=== PATIENT | female | born 1980 | race Caucasian/White ===

== ENCOUNTER 2024-11-23 17:02 | Emergency (ER) | payer OTHER, SELFPAY ==
--- NOTE | 2024-11-23 17:05 | ED_ITS ---
HPI - URI/Sore Throat General Chief Complaint: Upper Respiratory Infection Stated Complaint: cough and headache Time Seen by Provider: 11/23/24 17:05 Source: patient Mode of arrival: ambulatory Limitations: no limitations History of Present Illness HPI Narrative: Patient is a 44-year-old female who presents with bilateral ear pain, left being worse than right, ear fullness and cough for the last several days. Has worsened since coming back from vacation. Patient has been taking daily allergy medicine and other [id number] medications. Denies any fever, chills, nausea, vomiting, diarrhea. Related Data Allergies Allergy/AdvReac Type Severity Reaction Status Date / Time Sulfa (Sulfonamide Allergy Mild Hives Verified 11/23/24 17:22 Antibiotics) Penicillins AdvReac Intermediate Nausea and Verified 11/23/24 17:22 Vomiting Review of Systems Review of Systems: All systems reviewed & are unremarkable except as noted in HPI and below Constitutional: Constitutional: Denies chills, Denies fatigue, Denies fever(s), Denies headache(s), Denies malaise and Denies weakness Eyes: Eyes: Denies blurry vision, Denies itchy eyes and Denies loss of vision ENT: Reports otalgia, Denies headache(s), Reports nasal congestion, Denies sinus pain and Denies sore throat Cardiovascular: Cardiovascular: Denies chest pain, Denies irregular heart rhythm and Denies dyspnea Respiratory: Respiratory: Reports cough and Denies dyspnea Gastrointestinal: Gastrointestinal: Denies abdominal pain, Denies diarrhea, Denies nausea and Denies vomiting Musculoskeletal: Musculoskeletal: Denies back pain, Denies myalgias and Denies arthralgias Integumentary/Breasts: Skin/Breast: Denies pruritus and Denies rash Neurologic: Denies headache(s), Denies loss of vision and Denies weakness Psychiatric: Psychiatric: Reports no additional psychiatric complaints Endocrine: Endocrine: Denies fatigue Allergic/Immunologic: Allergic/Immunologic: Denies itchy eyes PMFSH Comments At time of signature, agree with nursing past medical, surgical, social and family history. There is no relevant family history pertinent to the presenting complaint. Exam Const: General: cooperative, healthy appearing, comfortable, no acute distress and well nourished Nutritional Appearance: well nourished Orientation/consciousness: patient oriented x3 Limitations: no limitations HENMT: Head: normal to inspection, normocephalic and atraumatic Ears: hearing grossly normal bilaterally, external ears normal, EAC's normal, no periauricular adenopathy and TM abnormal bulging bilateral and erythematous bilateral Face/Nose/Sinus: Normal external nose present, Abnormal mucous membranes and turbinates present erythematous bilateral and diffuse, normal facial exam, sinuses nontender and face symmetric Face and sinus: normal facial exam, sinuses nontender and face symmetric Mouth: Yes Normal oral and palatal mucosa present, Yes lip normal, Yes tongue normal, Yes Normal salivary glands and ducts present, Yes oropharynx normal and Yes moist mucous membranes Teeth and gingiva: dentition normal Throat: posterior oropharynx normal, tonsils normal and uvula midline Eyes: General: appearance normal, both eyes and all related structures Alignment and Position: alignment normal and position normal Periorbital: periorbital findings normal Eyelids: eyelids normal Pupils: Equal, round and reactive pupils present Neck: Neck: normal visual inspection, full ROM, no lymphadenopathy and supple Chest: Chest palpation & inspection: normal inspection of the chest and normal palpation of entire chest wall Resp: Effort & Inspection: normal respiratory effort, able to speak in complete sentences and Actively coughing dry Auscultation: clear to auscultation bilaterally, no crackles, no rales, no rhonchi and no wheezes Cardio: Rate: regular rate Rhythm: regular rhythm Heart sounds: S1 normal heart sound present and S2 normal heart sound present GI: Inspection: normal to inspection Skin: General skin exam: normal color and no rashes or lesions noted Neuro: General: patient oriented x3 and moves all extremities Cranial nerves: Yes Equal, round and reactive pupils present Speech: normal speech Gait exam (Neuro): Normal gait present Extrem: General: normal to inspection, full ROM and no edema Psych: Appearance: grossly normal and well kempt Mental Status: mental status grossly normal Speech and movement: Normal speech and movement present Affect: normal affect Attitude: cooperative Thought process: Normal thought process present Course Course Emergency Course: Discharge instructions reviewed with patient, as well as provided in writing per nursing staff. The instructions also include specific and strict return/GO TO THE ER as well as f/u information. All questions have been answered, and the patient deny any further questions with discharge and discharge plan. Portions of this record may have been created with voice recognition software Level of Care: Express Care Visit Vital Signs Vital signs: Reviewed [facility] - URI/Sore Throat MDM Narrative Medical decision making narrative: Pt well hydrated appearing, in no respiratory distress, hemodynamically stable. Recommend supportive care. The patient is stable at time of discharge the clinical impression was discussed and the patient was given the opportunity to ask questions, which were addressed as completely as possible given the information available at present. Anticipatory guidance and return to care precautions were discussed and the importance of primary care follow-up was stressed and encouraged. The patient voiced understanding of the plan, indications to return, and the need for follow-up. Exam findings show no acute concerns or changes Patient is appropriate for outpatient treatment and follow-up. Differential diagnosis considered: [place] virus, strep pharyngitis, allergic rhinitis, upper respiratory tract infection, sinusitis, rhinosinusitis, nasopharyngitis. viral pharyngitis, otitis media, otitis externa, otitis effusion, foreign body, cerumen impaction, viral syndrome, and influenza.? Medical Records Attestation: I reviewed the patient's medical records. Discharge Plan Discharge Clinical Impression: Seasonal allergies Otitis media Qualifiers: Otitis media type: suppurative Chronicity: acute Laterality: bilateral Recurrence: non-recurrent Spontaneous tympanic membrane rupture: without spontaneous rupture Qualified Code(s): H66.003 - Acute suppurative otitis media without spontaneous rupture of ear drum, bilateral Cough Qualifiers: Cough type: acute Qualified Code(s): R05.1 - Acute cough Patient Disposition: Home Condition: Stable Instructions: Ear Infection (GEN), Acute Cough (ED) Additional Instructions: Take antibiotics as directed. Use Tessalon Perles as needed for cough Recommend antihistamine such as Benadryl at night time and Zyrtec or Madeleine during the day until symptoms improve Flonase nasal spray, 1 spray in each nostril once daily until symptoms improve Also, recommend symptomatic treatment includes: rest, fluids, and increase humidity of the air at home. Recommend Acetaminophen as directed on the bottle to reduce fever, pain Please schedule a follow-up visit with your personal physician for further evaluation and treatment within 3-5days. If your symptoms persist, change or worsen significantly before you can contact your personal physician then please, without delay, go to the emergency department for further evaluation. Your blood pressure was elevated above 120/80 today at Urgent Care. This puts you above the threshold for follow up visit with a primary care provider. High blood pressure does not usually cause any symptoms, however it may lead to kidney failure, stroke, heart disease just to name a few if untreated . Many people are anxious when seeing a provider or nurse. As a result, you are not diagnosed with hypertension at this time unless your blood pressure is persistently high at two office visits at least one week apart. Some things that can help lower blood pressure are lifestyle modifications, such as light exercise, decreased salt in diet, and weight loss. It is important to follow up with a PCP about this within 1 week. Patient Language: Persian Prescriptions: New amoxicillin 875 mg tablet 875 mg PO Q12H 7 Days Qty: 14 0RF benzonatate 100 mg capsule 100 mg PO BID PRN (Reason: cough) Qty: 14 0RF Follow-up/Referrals: Caroline,TERELL Zarco [Primary Care Provider] - 3 Days Time of Disposition: 17:25
--- OUTSIDE RECORDS SUMMARY | 2024-11-23 17:10 | XMS_ITS | Encounter Summary ---
Author Organization [facility] Healthcare Address [address] [place] [id number] Care Team Providers Care Forming Machine Tender Name Role Phone Altagracia Velazquez Primary Care Provider [phone] Kevin Pascual MD Unavailable [phone] Encounter Details Date Type Department Care Team (Late st Contact Info) Description 05/08/2023 Documentation [facility] OP Physical Therapy [address] [place] [id number] Windy Rhodes, PT Social History Tobacco Use Types Packs/Day Years Used Date Smoking Tobacco: Never Smokeless Tobacco: Never Alcohol Use Standard Drinks/Week Comments Never 0 (1 standard drink = 0.6 oz pur e alcohol) AUDIT-C Answer Date Recorded Q1: How often do you have a drink containing alcohol? Never 10/09/2022 Q2: How many drinks containi ng alcohol do you have on a typical day when you are drinking? Patient does not drink Q3: How often do you have si x or more drinks on one occasion? Never 10/09/2022 PHQ-2 Answer Date Recorded PHQ-2 Total Score (If total score is 3 or more points, staff should administer the PHQ-9) 0 10/09/2022 Comments No Sex and Gender Information Value Date Recorded Sex Assigned at Not on file Legal Sex Female 10:01 AM CDT Gender Identity Female 06/23/2024 7:00 AM [employer] Sexual Orientation Not on file documented as of this encounter Plan of Treatment Not on file documented as of this encounter Visit Diagnoses Not on filedocumented in this encounter Care Teams Forming Machine Tender Relationship Specialty Start Date End Date Altagracia Velazquez PA [address] [place] [address] PCP - General Family Medicine 01/20/19 Kevin Pascual MD [address] [place] [address] Consulting Physician Family Medicine 01/20/19 documented as of this encounter
--- OUTSIDE RECORDS SUMMARY | 2024-11-23 17:10 | XMS_ITS ---
Author Organization [facility] [place] ([address]) Address [address] [place] [address] Care Team Providers Care Manager Business Management Name Role Phone Altagracia Velazquez Primary Care Provider UnavailLizeth Brown Unavailable [phone] Jayshree Agustin Unavailable Unavailable Vineet Canseco Unavailable [phone] REASON FOR VISIT Hives follow-up, started Xolair in 04/2022. No interval hives. Taking Zyrtec daily, no longer takingPepcid or Singulair. No issues with last Xolair dose., Chronic upper airway symptoms concerning foruncontrolled atopic disease, with prior testing in childhood. No prior immunotherapy, has noticed increased symptoms lately. Testing blunted last week., Seasonal cough and wheezing requiring KENDRA -finding albuterol causing tachycardia and shakiness. Switched to Levalbuterol with benefit., Chronic rash on hands, worse in winter, marked by small bumps, recently worse on one of her fingers, better with Vanicream., Recently received TDAP with urticaria the next day, first hive outbreak in months. Medications Medication SIG (Take, Route, Frequency, Duration) Notes Start Date End Date Status LEVALBUTEROL TARTRATE HFA 45 mcg/inh 2 puff(s) inhaled every 4 hours Active FLUTICASONE NASAL 50 mcg/inh 1 spray(s) in each nostril twice a day; Duration: 30 days Active AZELASTINE NASAL 137 mcg/inh 2 spray(s) intranasally 2 times a day; Duration: 30 days Active PREDNISONE 20 mg 2 tab(s) orally once a day; Duration: 5 days Active XOLAIR 150 mg 150 mg subcutaneousl y every 4 weeks; Duration: 30 days Activ e VANICREAM CLEANSING BAR - 1 juan applied topically 4 times a day Active CLOBETASOL (EQV-TEMOVATE E) 0.05% 1 juan applied topically 2 times a day; Duration: 7 day(s) Active CETIRIZINE 10 mg 1 tab(s) orally Qday ; Duration: 90 days Active PEPCID 40 mg 1 tab(s) orally once per day; Duration: 90 days Active MONTELUKAST 10 mg 1 tab(s) orally at n ight; Duration: 90 days Active EPIPEN 2-FRANCIS 0.3 mg as directed intramus cularly once; Duration: 30 days Active VANICREAM MOISTURIZING CREAM N/A as necessary Apply to external surfaces as often as needed to face, hands, feet or body For daily use by the entire family; Duration: 30 day(s) Active Social History Sex Assigned At : Social History Observation Description Sex Assigned At Female Encounters Encounter Location Date Provider Diagnosis [address] [address] 10/29/2024 Vineet Ajith Idiopathic urticar ia L50.1 ; Dermatographic urticaria L50.3 ; Localized swelling, mass and lump, head R22.0 ; Wheezing R06.2 ; Dyshidrosis [pompholyx] L30.1 ; Allergic rhinitis due to pollen J30.1 ; Other allergic rhinitis J30.89 ; Adverse effect of other vaccines and biological substances, initial encounter T50.Z95A and Elevated blood-pressure reading, without diagnosis of hypertension R03.0 Assessments Encounter Date Diagnosis (ICD Code) Assessment Notes Treatment Notes Treatment Clinical Notes Section Notes 10/29/2024 Idiopathic urticaria (ICD-10 - L50.1) Kathy has a history of chronic hives occurring in college. Started occurring daily in November 2021, > 6 weeks with episodes of swelling. She has continued doing very well on Xolair. No interval hives reported in the last several months. - Recommend continuing Xolair Q4 weeks given her response. Continue daily Zyrtec. No hives off meds this week. She is no longer taking Singulair or Pepcid without increased in pruritus or recurrence of hives. - Kathy presents today interested in titrating down XOLAIR as she has not had hives and has been on therapy for two years. Due to this, 150 mg of XOLAIR given today. 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 - Carrying AIE at all times 10/29/2024 Wheezing (ICD-10 - R06.2) Seasonal wheezing 2-3 x a year with historical PNA and bronchitis - Given history, spirometry was obtained in the past, which was normal. - Has KENDRA to have on hand, if she has use >2-3x a week recommend repeat spirometry and consider controller. - Continue to monitor for increased KENDRA use, no recent issues 10/29/2024 Dyshidrosis [pompholyx] (ICD-10 - L30.1) Her prior description of rash is c/w dyshidrotic eczema. Skin clear today on PE. - Discussed using unscented dye free products. Consider patch testing if symptoms return. - Continue Vanicream moisturizer and soap - Used clobetasol with topical emollient BID x 3-7 days with significant improvement 10/29/2024 Allergic rhinitis due to pollen (ICD-10 - J30.1) Skin testing unable to be performed. ImmunoCaps showed dust mite, grass, and tree allergy. - Continue medication regimen as above for better control of symptoms. - Recently returned for skin testing, however test was blunted, showed only phoma, goldenrod, and sari grass. - Recommend retesting once off Xolair in the next year 10/29/2024 Other allergic rhinitis (ICD-10 - J30.89) As above 10/29/2024 Adverse effect of other vaccines and biological substances, initial encounter (ICD-10 - T50.Z95A) Kathy reports that in October she received a TDAP booster. The next day she developed urticaria on her face and hairline. - Timeline described is not consistent with IgE-mediated hypersensitivity reaction to TDAP vaccine. Can consider a dose challenge if desired by Kathy in the future 10/29/2024 Elevated blood-pressure reading, without diagnosis of hypertension (ICD-10 - R03.0) BP elevated today without symptoms of urgency or emergency. Continue serial checks and follow-up with PCP 10/29/2024 Other Plan Of Treatment Medication Medication Name Sig Start Date Stop Date Notes LEVALBUTEROL TARTRATE HFA 45 mcg/inh 2 puff(s) inhaled every 4 hours FLUTICASONE NASAL 50 mcg/inh 1 spray(s) in each nostril twice a day; Duration: 30 days AZELASTINE NASAL 137 mcg/inh 2 spray(s) intranasally 2 times a day; Duration: 30 days PREDNISONE 20 mg 2 tab(s) orally once a day; Duration: 5 days XOLAIR 150 mg 150 mg subcutaneousl y every 4 weeks; Duration: 30 days VANICREAM CLEANSING BAR - 1 juan applied topically 4 times a day CLOBETASOL (EQV-TEMOVATE E) 0.05% 1 juan applied topically 2 times a day; Duration: 7 day(s) CETIRIZINE 10 mg 1 tab(s) orally Qday ; Duration: 90 days PEPCID 40 mg 1 tab(s) orally once per day; Duration: 90 days MONTELUKAST 10 mg 1 tab(s) orally at n ight; Duration: 90 days EPIPEN 2-FRANCIS 0.3 mg as directed intramus cularly once; Duration: 30 days VANICREAM MOISTURIZING CREAM N/A as necessary Apply to external surfaces as often as needed to face, hands, feet or body For daily use by the entire family; Duration: 30 day(s) Treatment Notes Assessment Notes Idiopathic urticaria Kathy has a history of chronic hives occurring in college. Started occurring daily in November 2021, > 6 weeks with episodes of swelling. She has continued doing very well on Xolair. No interval hives reported in the last several months. - Recommend continuing Xolair Q4 weeks given her response. Continue daily Zyrtec. No hives off meds this week. She is no longer taking Singulair or Pepcid without increased in pruritus or recurrence of hives. - Kathy presents today interested in titrating down XOLAIR as she has not had hives and has been on therapy for two years. Due to this, 150 mg of XOLAIR given today. - Return in 4 weeks for XOLAIR and further evaluation and management Dermatographic urticaria Pictures of hives show some linear welts c/w dermatographism - Doing well on XOLAIR Localized swelling, mass and lump, head Episodic swelling of eyelids and lips in the setting of hives - Continues doing well on XOLAIR. - Carrying AIE at all times Wheezing Seasonal wheezing 2-3 x a year with historical PNA and bronchitis - Given history, spirometry was obtained in the past, which was normal. - Has KENDRA to have on hand, if she has use >2-3x a week recommend repeat spirometry and consider controller. - Continue to monitor for increased KENDRA use, no recent issues Dyshidrosis [pompholyx] Her prior description of rash is c/w dyshidrotic eczema. Skin clear today on PE. - Discussed using unscented dye free products. Consider patch testing if symptoms return. - Continue Vanicream moisturizer and soap - Used clobetasol with topical emollient BID x 3-7 days with significant improvement Allergic rhinitis due to pollen Skin testing unable to be performed. ImmunoCaps showed dust mite, grass, and tree allergy. - Continue medication regimen as above for better control of symptoms. - Recently returned for skin testing, however test was blunted, showed only phoma, goldenrod, and sari grass. - Recommend retesting once off Xolair in the next year Other allergic rhinitis As above Adverse effect of other vacc paula and biological substances, initial encounter Kathy reports that in October she received a TDAP booster. The next day she developed urticaria on her face and hairline. - Timeline described is not consistent with IgE-mediated hypersensitivity reaction to TDAP vaccine. Can consider a dose challenge if desired by Kathy in the future Elevated blood-pressure read ing, without diagnosis of hypertension BP elevated today without symptoms of urgency or emergency. Continue serial checks and follow-up with PCP Next Appt Details Follow Up: 4 Weeks, Reason: XOLAIR Administration,Evaluation and Management Provider Name:Vineet Canseco , 12/03/2024 04:00:00 PM, [address] [place], [address], Progress Notes * Kami LEWISOB: 0 (44 yo F)Acc No.[id number]:10/29/2024 XOLAIR F/U Patient: Kathy LEVI Provider: Helio Canseco MD :1980 A ge:44 Y S ex:Female Date:10/29/2024 Address:[address] [place] [address], [facility] Pcp:Altagracia Velazquez Subjective: * Chief Complaints: * 1 . Hives follow-up, started Xolair in 04/2022. No interval hives. Taking Zyrtec daily, no longer taking Pepcid or Singulair. No issues with last Xolair dose.. 2. Chronic upper airway symptoms concerning for uncontrolled atopic disease, with prior testing in childhood. No prior immunotherapy, has noticed increased symptoms lately. Testing blunted last week.. 3. Seasonal cough and wheezing requiring KENDRA - finding albuterol causing tachycardia and shakiness. Switched to Levalbuterol with benefit.. 4. Chronic rash on hands, worse in winter, marked by small bumps, recently worse on one of her fingers, better with Vanicream.. 5. Recently received TDAP with urticaria the next day, first hive outbreak in months.. * HPI: * Introduction: HPI: Sue ibarramatt Lewis, a 44-year-old female with a history of migraines and hives returning today in consultation with SAFBJulián Kathy is alone today. She is here today to continue treatment with XOLAIR for chronic hives. She continues Xolair every 4 weeks, she first started XOLAIR April 2022. She is taking Zyrtec daily, no longer taking Pepcid or Singulair. She carries an AIE at all times. She is interested in reducing XOLAIR. S he has not had any interval hives or itching in the past few months. Has been able to reduce meds as above. She did receive a TDAP booster in October. The next day she had urticaria across her face and hairline. No other associated systemic symptoms. States this has been the only hives she has had in the last year. She reports that she had hives for years in college but never was evaluated. She would take Claritin or Zyrtec with benefit. Had allergy testing in childhood positive to several things but never offered immunotherapy. She recently presented for skin testing, however testing was blunted. As a family they moved to several cities, not having time to be seen an valve lapper again. Hives worsened in November 2021, was having hives almost daily. Then began experiencing facial swelling with hives. Feels that stress and pressure (bra line or underwear line) are triggers. She does use NSAIDs - Excedrin Migraine PRN - for migraines. Doesn't feel this worsens hives, opioids in the past have caused rash/hives. She is a lifetime non-smoker and does not drink alcohol as she gets flushing/hotness of cheeks. Sue guy also has a history of rash, occurring on hands, marked as small pruritic bumps. Now using Vanicream with benefit. 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 No other triggers. Does worsen in grain drier climates. Re: wheezing. 2-3 times a year reports self-perceived wheezing. Has been given albuterol in the past, with use 1-2 times per month. Years ago would have recurrent bronchitis and PNA. None in the past 8 years. Switched to Levalbuterol at a prior visit due to side effects.Interested in allergy testing but was unable to hold meds as hives and swelling of eyelids and lips occurred.Today, she reports no fevers, chills, night sweats or other constitutional symptoms. The patient is here for scheduled immunotherapy with XOLAIR. Please see the attached specialty form regarding the specifics of the administration of this medication. As per our protocol, they must undergo a screening health questionnaire (medication changes, reaction(s) to last immunotherapy dose(s), current health status, ACT (if appropriate), self-injectable epinephrine on patient(?) and peak flow (if appropriate)). Also, the patient must wait in our office under direct observation of physician and staff for 2 hours after the first 3 doses, then 30 minutes after receiving this medication thereafter. Furthermore, every patient must have an epinephrine pen (self-injectable) with them at all times given boxed warning of XOLAIR. * ROS: A LLERGY: Positive p er the HPI and history, otherwise unremarkable.?runny nose Y es. s cratchy throat Y es. i tchy eyes Y es. e ar fullness?Yes. s inus congestion Y es. S PECIAL SENSES: Positve for n one. c ataracts N o. g laucoma?No. l oss of hearing N o. i tching in ears Y es. r inging in ears N o.?loss of balance Y es. l oss of smell N o. d ry eyes N o. e xcessive tearing N o. i tching eyes Y es. l oss of taste N o. c onjunctivitis N o.?ear infections N o. C ONSTITUTIONAL: weight gain N o. l oss of appetite N o. f ever?No. w eakness N o. w eight loss N o. f atigue Y es. n ight sweats?No. P ositive for n one. E NT: cold N o. c ough N o. e pistaxis N o. h earing loss N o. c hange in voice N o. s ore throat Y es. r inging in ears?No. s inus pain Y es. P ositive p er the HPI and history, otherwise unremarkable. R ESPIRATORY: shortness of breath N o. c hest pain N o. c hest congestion N o. c ough N o. P ositive p er the HPI and history, otherwise unremakable. O PHTHALMOLOGY: diminished vision N o. e ye irritation N o. d rainage from eyes N o. b lurring of vision N o. s easonal eye sx Y es. P ositive for p er the HPI and history, otherwise unremarkable. i tching Y es. s ensitivity to light Y es. d ischarge N o. w atering N o. s welling of the eyelids?Yes. r edness N o. E NDOCRINOLOGY: fatigue N o. p olydipsia N o. p olyuria N o. w eight loss N o. s leep disturbance N o. c old intolerance N o. h eat intolerance N o. d iabetes N o. P ositive for n one. C ARDIOLOGY: chest pain N o. p alpitations N o. l eg edema?No. d izziness Y es. s hortness of breath Y es. P ositive for n one.? G ASTROENTEROLOGY: dysphagia N o. a bdominal pain N o. n ausea?No. v omiting N o. c onstipation N o. d iarrhea N o. b lood in stool?No. i ndigestion N o. h emorrhoids N o. P ositive for n one. ? U ROLOGY: difficulty urinating N o. b lood in urine N o. f requent urination N o. u rinary incontinence Y es. r ecurrent UTI N o. P ositive for n one. D ERMATOLOGY: lumps N o. d ry or sensitive skin N o. h katey (urticaria) Y es. a cne N o. s kin cancer N o. P ositive for p er the HPI and history, otherwise unremakable. N EUROLOGY: headache Y es. t ingling numbness N o. s eizures N o. i nsomnia N o. m michelle loss N o. d izziness Y es. g ait abnormality N o. P ositive for n one. H EMATOLOGY/LYMPH: Positive for n one. M USCULOSKELETAL: joint swelling N o. j oint pain Y es. l eg cramps N o. j oint stiffness Y es. s ciatica Y es. o steoporosis N o. f racture N o. c arpal tunnel N o. g out N o. P ositive for n one. ? P SYCHOLOGY: high stress level N o. d epression N o. s leep disturbances N o. s uicidal ideation N o. e ating disorder N o. m ental or physical abuse N o. a nxiety N o. P ositive for n one. F EMALE REPRODUCTIVE: heavy periods N o. h ot flashes N o. a bnormal vaginal discharge N o. s exually active Y es. i nfertility Y es. f requent yeat infections N o. p elvic pain N o. b reast pain N o. n ipple discharge No. A re you ? N o. A re you planning on a future pregancy? N o. ? A ll other review of systems per the HPI and history, otherwise unremarkable. * Medical History: Objective: * Vitals: Assessment: * Assessment: 1. I diopathic urticaria - L50.1 (Primary) 2 . D ermatographic urticaria - L50.3 3 . L ocalized swelling, mass and lump, head - R22.0 4 .?Wheezing - R06.2 5 . D yshidrosis [pompholyx] - L30.1 6 . Allergic rhinitis due to pollen - J30.1 7 . O ther allergic rhinitis - J30.89? 8. A dverse effect of other vaccines and biological substances, initial encounter - T50.Z95A 9 . E levated blood-pressure reading, without diagnosis of hypertension - R03.0 Plan: * Treatment: 2. 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 L ocalized swelling, mass and lump, head Continue EPIPEN 2-FRANCIS kit, 0.3 mg, as directed, intramuscularly, once, 30 days, 1, Refills 0. ? Notes: Episodic swelling of eyelids and lips in the setting of hives - Continues doing well on XOLAIR. - Carrying AIE at all times 4. W heezing Continue LEVALBUTEROL TARTRATE HFA aerosol, 45 mcg/inh, 2 puff(s), inhaled, every 4 hours. ? Notes: Seasonal wheezing 2-3 x a year with historical PNA and bronchitis - Given history, spirometry was obtained in the past, which was normal. - Has KENDRA to have on hand, if she has use >2-3x a week recommend repeat spirometry and consider controller. - Continue to monitor for increased KENDRA use, no recent issues 5. D yshidrosis [pompholyx] Continue VANICREAM MOISTURIZING CREAM Moisturizing Cream, N/A, as necessary, Apply to external surfaces as often as needed to face, hands, feet or body, For daily use by the entire family, 30 day(s), 1 lb. (453 g), Refills PRN; C ontinue VANICREAM CLEANSING BAR soap, -, 1 juan, applied topically, 4 times a day; C ontinue CLOBETASOL (EQV-TEMOVATE E) cream, 0.05%, 1 juan, applied topically, 2 times a day, 7 day(s), 30 g, Refills 0. Notes: Her prior description of rash is c/w dyshidrotic eczema. Skin clear today on PE. - Discussed using unscented dye free products. Consider patch testing if symptoms return. - Continue Vanicream moisturizer and soap - Used clobetasol with topical emollient BID x 3-7 days with significant improvement 6. A llergic rhinitis due to pollen Continue FLUTICASONE NASAL spray, 50 mcg/inh, 1 spray(s), in each nostril, twice a day, 30 days, 1, Refills 0; C ontinue AZELASTINE NASAL spray, 137 mcg/inh, 2 spray(s), intranasally, 2 times a day, 30 days, 1, Refills 1. Notes: Skin testing unable to be performed. ImmunoCaps showed dust mite, grass, and tree allergy. - Continue medication regimen as above for better control of symptoms. - Recently returned for skin testing, however test was blunted, showed only phoma, goldenrod, and sari grass. - Recommend retesting once off Xolair in the next year 7. O ther allergic rhinitis Notes: As above 8. A dverse effect of other vaccines and biological substances, initial encounter Notes: Kathy reports that in October she received a TDAP booster. The next day she developed urticaria on her face and hairline. - Timeline described is not consistent with IgE-mediated hypersensitivity reaction to TDAP vaccine. Can consider a dose challenge if desired by Kathy in the future 9. E levated blood-pressure reading, without diagnosis of hypertension Notes: BP elevated today without symptoms of urgency or emergency. Continue serial checks and follow-up with PCP * Preventive Medicine: Counseling: M edication instruction: W atch for side effects of prescribed medications, Nasal steroid/antihistamine instruction: avoid septum, Reviewed boxed warning on prescribed medication, Xolair: anaphylaxis, possible association with CV disease and malignancy.? E ducation: H KATEY EDUCATION:, Avoid opioid-containing analgesics, Avoid excessive alcohol use, Avoid NSAIDs (non-steroidal anti-inflammatories) - list provided. E ducation 2: A RC EDUCATION: Our staff discussed the appropriate allergen avoidance measures and medication utilization including upper airway hygiene with daily nasal washes given the patient's clinical status and diagnoses.. P atient education material sent to portal? Y es C are goal follow up plan BMI management provided Y es Above Normal BMI Follow-up W eight monitoring B P Management: LIFESTYLE RECOMMENDATION: H ypertension education REFERRAL TO ALTERNATIVE / PRIMARY CARE PROVIDER: Darline crockett to general practitioner * Follow Up: 4 Weeks (Reason: XOLAIR Administration,Evaluation and Management) * Billing Information: * Visit Code: 98379 Office Visit, Est Pt., Level 4. Modifiers: 25 * Procedure Codes: 21355 PT-FOCUSED HLTH RISK ASSMT. G8427 DOC [place] VERIFIED W/[place]. [address] CHEMO, ANTI-NEOPL, SQ/IM. J2357 NOC Xolair 150 mg PFS. Units: 30.00. Modifiers: JZ * Electronic signature of Lindsey Canseco MD, FAAAAI on 11/23/2024 at 05:10 PM CDT Sign off status: Pending * Provider: Helio Canseco MD Date: 10/29/2024 Generated for Printi ng/Faxing/eTransmitting on: 11/23/2024 05:10 PM CDT History and Physical Notes * HPI (History of Present Illness) Category Sub-Category Detail Notes Category Not es *Introduction HPI: Kathy Lewis, a 44-year-old female with a history of migraines and hives returning today in consultation with SAFB. Kathy is alone today. She is here today to continue treatment with XOLAIR for chronic hives. She continues Xolair every 4 weeks, she first started XOLAIR April 2022. She is taking Zyrtec daily, no longer taking Pepcid or Singulair. She carries an AIE at all times. She is interested in reducing XOLAIR. She has not had any interval hives or itching in the past few months. Has been able to reduce meds as above. She did receive a TDAP booster in October. The next day she had urticaria across her face and hairline. No other associated systemic symptoms. States this has been the only hives she has had in the last year. She reports that she had hives for years in college but never was evaluated. She would take Claritin or Zyrtec with benefit. Had allergy testing in childhood positive to several things but never offered immunotherapy. She recently presented for skin testing, however testing was blunted. As a family they moved to several cities, not having time to be seen an valve lapper again. Hives worsened in November 2021, was having hives almost daily. Then began experiencing facial swelling with hives. Feels that stress and pressure (bra line or underwear line) are triggers. She does use NSAIDs - Excedrin Migraine PRN - for migraines. Doesn't feel this worsens hives, opioids in the past have caused rash/hives. She is a lifetime non-smoker and does not drink alcohol as she gets flushing/hotness of cheeks. Kathy also has a history of rash, occurring on hands, marked as small pruritic bumps. Now using Vanicream with benefit. 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 No other triggers. Does worsen in grain drier climates. Re: wheezing. 2-3 times a year reports self-perceived wheezing. Has been given albuterol in the past, with use 1-2 times per month. Years ago would have recurrent bronchitis and PNA. None in the past 8 years. Switched to Levalbuterol at a prior visit due to side effects. Interested in allergy testing but was unable to hold meds as hives and swelling of eyelids and lips occurred. Today, she reports no fevers, chills, night sweats or other constitutional symptoms The patient is here for scheduled immunotherapy with XOLAIR. Please see the attached specialty form regarding the specifics of the administration of this medication. As per our protocol, they must undergo a screening health questionnaire (medication changes, reaction(s) to last immunotherapy dose(s), current health status, ACT (if appropriate), self-injectable epinephrine on patient(?) and peak flow (if appropriate)). Also, the patient must wait in our office under direct observation of physician and staff for 2 hours after the first 3 doses, then 30 minutes after receiving this medication thereafter. Furthermore, every patient must have an epinephrine pen (self-injectable) with them at all times given boxed warning of XOLAIR. Examination Category Sub-Category Detail Notes Category Not es General examination HEENT: conjunctiva are normal bilaterally, TMs without evidence of acute infection, posterior oropharynx is clear without exudates, erythema on pharyngeal wall, no exudates, tonsils are present, no tongue swelling, and uvula is midline Heart: RRR, S1-S2, no murmu rs, no rubs, no gallops Lungs: clear to auscultatio n in all lung lawrence, no wheezes or crackles General appearance: pleasant, well-devel oped, well-nourished, female, in no apparent distress Skin: normal, no visible r bushra Neurologic exam: unremarkable Oral cavity: normal, no lesions Breasts : not performed Back: normal Genitalia: not performed
--- OUTSIDE RECORDS SUMMARY | 2024-11-23 17:10 | XMS_ITS | Referral Summary ---
Author Organization [address] Address [address] [place] [phone] Care Team Providers Care Butcher Assistant Name Role Phone Altagracia Velazquez Primary Care Provider Kevin Pascual MD Unavailable [phone] Encounters Date Type Department Care Team Description 11/06/2024 2:59 PM CDT - 11/06/2024 11:59 PM CDT Hospital Encounter [facility] Diagnostic Imaging [address] [place] [address] Acute bilateral low back pain without sciatica; Neck pain Discharge Disposition: Discharge to home or self care 10/17/2024 Results Follow-Up [facility] Medicine [address] [place] [phone] Altagracia Velazquez PA Hemoglobin A1c, Thyroid Function Marion, Comprehensive metabolic panel, Additional followed-up results: 3 10/17/2024 8:55 AM CDT Lab [facility] OP Lab [address] [place] [id number] Health maintenance examination; Irritable bowel syndrome with both constipation and diarrhea; Tension headache; Neck pain; Acute bilateral low back pain without sciatica; Class 2 obesity due to excess calories without serious comorbidity with body mass index (BMI) of 36.0 to 36.9 in adult; Screening, lipid; Screening for thyroid disorder 10/15/2024 12:30 PM CDT Office Visit [facility] Family Medicine [address] [place] [phone] Altagracia Velazquez PA Health maintenance examination (Primary Dx); Screening mammogram for breast cancer; Seasonal allergic rhinitis due to pollen; Irritable bowel syndrome with both constipation and diarrhea; Tension headache; Neck pain; Acute bilateral low back pain without sciatica; Class 2 obesity due to excess calories without serious comorbidity with body mass index (BMI) of 36.0 to 36.9 in adult; Screening, lipid; Screening for thyroid disorder 09/24/2024 12:27 PM CDT - 09/24/2024 11:59 PM CDT Hospital Encounter [facility] Diagnostic Imaging [facility] [place], [place] [id number] Right hip pain Discharge Disposition: Discharge to home or self care 09/17/2024 Orders Only [facility] Orthopaedic Surgery [address] [facility] [address] [place] [phone] Khalida Dickson MD Right hip pain (Primary Dx) 09/11/2024 12:52 PM CDT - 09/11/2024 11:59 PM CDT Hospital Encounter [facility] Radiology [address] [facility] [address] [place] [address] Right hip pain Discharge Disposition: Discharge to home or self care 09/11/2024 2:15 PM CDT Office Visit [facility] Orthopaedic Surgery [facility] [address] [place] [address] Khalida Dickson MD Right hip pain (Primary Dx); Chronic right hip pain; Hip dysplasia 08/26/2024 Telephone [facility] Family Medicine [address] [phone] Altagracia Velazquez PA Referral Request from Last 3 Months Allergies Active Allergy Reactions Criticality Noted Date Comments Diphth,Pertus(Acell),Tetanus Itching Low 024 Hives on face 3 days later Penicillins Vomiting Low 11/14/2005 Sulfa (Sulfonamide Antibiotics) Unknown 01/22/2019 Mom has reactions Sulfamethoxazole Rash Medium 03/20/2024 Medications azelastine (ASTELIN) 137 mcg (0.1 %) nasal sprayIndication s:Seasonal allergic rhinitis due to pollen Administer 1 spray into each nostril 2 (two) times a day Use in each nostril as directed 30 mL 5 1 Active cetirizine (ZyrTEC) 10 mg tabletIndicatio ns:Allergic Conjunctivitis, Allergic Rhinitis Take 1 tablet (10 mg total) by mouth 2 (two) times a day Active EPINEPHrine (EpiPen) 0.3 mg/0.3 mL auto-injection syringeIndicati ons:Anaphylaxis Inject 0.3 mL (0.3 mg total) into the muscle as instructed as needed for anaphylaxis Active levalbuterol (XOPENEX HFA) 45 mcg/actuation inhalerIndicati ons:Bronchospas m Prevention Inhale 2 puffs every 4 (four) hours as needed for wheezing or shortness of breath 3 Active omalizumab (Xolair) 150 mg injectionIndica tions:severe persistent asthma,allergy induced Inject under the skin every 30 (thirty) days Active metaxalone (SKELAXIN) 800 mg tabletIndicatio ns:Muscle Spasm Take 1 tablet (800 mg total) by mouth 3 (three) times a day as needed for muscle spasms 60 tablet 5 12/15/19 25 Active Active Problems Problem Noted Date Diagnosed Date Elevated glucose 10/17/2024 Tension headache 10/15/2024 Assessment & Plan (10/15/2024 1:40 PM CDT): Uncontrolled. Could be related to her neck pain. We are going to proceed with working up the neck pain and then further evaluate the tension headaches if needed. Patient given Skelaxin to take as needed Orders: metaxalone (SKELAXIN) 800 mg tablet; Take 1 tablet (800 mg total) by mouth 3 (three) times a day as needed for muscle spasms Lipid panel; Future Comprehensive metabolic panel; Future Thyroid Function Marion; Future Hemoglobin A1c; Future Assessment & Plan (10/15/2024 1:09 PM CDT): Orders: metaxalone (SKELAXIN) 800 mg tablet; Take 1 tablet (800 mg total) by mouth 3 (three) times a day as needed for muscle spasms Lipid panel; Future Comprehensive metabolic panel; Future Thyroid Function Marion; Future Hemoglobin A1c; Future Mild persistent asthma 09/03/2023 Allergic rhinitis 06/27/2023 Overview (06/27/2023): trial of glen vs. zyrtec patient states generic zyrtec not as effective as prior continue zyrtec, likely viral uri, meds as directed, f/u prn for worsening s/s or concerns Assessment & Plan (10/15/2024 1:40 PM CDT): Chronic, stable, continue Astelin and Zyrtec Assessment & Plan (10/15/2024 1:09 PM CDT): Irritable bowel syndrome 06/27/2023 Overview (06/27/2023): - does not quite meet all diagnostic criteria for IBS, but she does carry a history of his diagnosis. Has mixed type symptoms, not predominantly constipation or diarrhea. - patient instructed to keep a food diary - medications for IBS given, will foll Assessment & Plan (10/15/2024 1:40 PM CDT): Chronic, stable, diet controlled Orders: Lipid panel; Future Comprehensive metabolic panel; Future Thyroid Function Marion; Future Hemoglobin A1c; Future Assessment & Plan (10/15/2024 1:09 PM CDT): Orders: Lipid panel; Future Comprehensive metabolic panel; Future Thyroid Function Marion; Future Hemoglobin A1c; Future Migraine headache 06/27/2023 Overview (06/27/2023): refilled, works well prn use Polycystic ovarian syndrome 06/27/2023 Varicose veins of both lower extremities 024 Health maintenance examination 02/07/2019 Overview (10/15/2024): PMH: 10/15/24 Last pap: 09/03/23 Last mammogram: 03/08/23 Last dexa: Last colonoscopy/cologuard: Last tdap: 09/03/23 Last Prevnar/pneumovax: Last Shingrix: Last eye exam: 2023 Assessment & Plan (10/15/2024 1:40 PM CDT): PMH: 10/15/24 Last pap: 09/03/23 Last mammogram: 03/08/23 Last dexa: Last colonoscopy/cologuard: Last tdap: 09/03/23 Last Prevnar/pneumovax: Last Shingrix: Last eye exam: 2023 Orders: Lipid panel; Future Comprehensive metabolic panel; Future Thyroid Function Marion; Future Hemoglobin A1c; Future Assessment & Plan (10/15/2024 1:09 PM CDT): PMH: 10/15/24 Last pap: 09/03/23 Last mammogram: 03/08/23 Last dexa: Last colonoscopy/cologuard: Last tdap: 09/03/23 Last Prevnar/pneumovax: Last Shingrix: Last eye exam: 2023 Orders: Lipid panel; Future Comprehensive metabolic panel; Future Thyroid Function Marion; Future Hemoglobin A1c; Future Assessment & Plan (09/03/2023 3:46 PM CDT): PMH: 09/03/23 Last pap: 09/03/23 Last mammogram: 03/08/23 Last dexa: Last colonoscopy/cologuard: Last tdap: 09/03/23 Last Prevnar/pneumovax: Last Shingrix: Last eye exam: Assessment & Plan (02/07/2019 11:38 AM CDT): PMH: 02/07/2019 Last pap: 2018 Last mammogram: Last dexa: Last colonoscopy/cologuard: Last tdap: need to get records Last Prevnar/pneumovax: Last Shingrix: Last eye exam: Class 2 obesity due to exces s calories without serious comorbidity with body mass index (BMI) of 36.0 to 36.9 in adult 02/07/2019 Assessment & Plan (10/15/2024 1:40 PM CDT): Educated patient on healthy diet/exercise plan. Exercise 150min-300min per week of moderate intensity. Diet: good, healthy protein (eggs, nuts, peanut butter, chicken, fish, turkey, less pork/beef), lots of vegetables, less carbohydrates and less sugar. Orders: Lipid panel; Future Comprehensive metabolic panel; Future Thyroid Function Marion; Future Hemoglobin A1c; Future Assessment & Plan (10/15/2024 1:09 PM CDT): Orders: Lipid panel; Future Comprehensive metabolic panel; Future Thyroid Function Marion; Future Hemoglobin A1c; Future Assessment & Plan (02/07/2019 11:39 AM CDT): Educated patient on healthy diet/exercise plan. Exercise 150min-300min per week of moderate intensity. Diet: good, healthy protein (eggs, nuts, peanut butter, chicken, fish, turkey, less pork/beef), lots of vegetables, less carbohydrates and less sugar. 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 06/27/2023 09/03/2023 Benign gestational thrombocytopenia 06/27/2023 09/03/2023 Calculus of gallbladder 06/27/2023 05/0 09/2023 Chronic pansinusitis 06/27/2023 024 Congenital malformation 06/27/2023 05/0 09/2023 Female infertility 06/27/2023 abnormality affecting management of mother, antepartum condition or complication 06/27/2023 09/03/2023 Increased frequency of urination 06/27/2023 09/03/2023 Metrorrhagia 06/27/2023 09/03/2023 Nonvenomous insect bite of right forearm 06/27/2023 09/03/2023 Overview (06/27/2023): likely hypersensitivity rxn, meds as directed, f/u in am if extends from upper [place] drawn on arm or if develop fever Oligomenorrhea 06/27/2023 09/03/2023 Overview (06/27/2023): labs wnl, LMP 2 weeks ago, reassurance given continue f/u cycles on calander Otitis media 06/27/2023 09/03/2023 Pain in wrist 06/27/2023 09/03/2023 Pain of finger 06/27/2023 09/03/2023 Perioral dermatitis 06/27/2023 09/03/19 24 Plantar wart 06/27/2023 09/03/2023 Overview (06/27/2023): LN2 tx today, instructed on use of mediplast w/ duct tape occlusion, f/u prn Epigastric pain 06/27/2023 09/03/2023 Skin cancer 06/27/2023 09/03/2023 Unspecified urinary incontinence 06/27/2023 09/03/2023 Seasonal allergies 02/07/2019 Assessment & Plan (02/07/2019 11:38 AM CDT): Uncontrolled. Continue Zyrtec and add Flonase Immunizations Immunization Administration Dates Next Due Hep B, Unspecified 02/18/2008 Influenza, Quadrivalent, Spl it, Preservative Free, Intramuscular 04/15/2023,02/27/2022,02/05/2021,02/07 Influenza, Trivalent, Cell Culture-based MDCK, Preservative Free, Antibiotic Free, Intramuscular 02/28/2022 Influenza, Unspecified 01/29/2024(Deferr ed: Patient Refused),02/15/2018,03/08/2015, 014,04/06/2010,03/17/2009,02/18/2008 MMR 02/24/2008 PPD TEST 02/18/2008 Pfizer SARS-CoV-2 Monovalent Vaccination (12+ Yrs) PURPLE 04/25/2021,07/08/2020,06/15/2020 Tdap 09/03/2023,09/17/2013,02/18/2008 Social History Tobacco Use Types Packs/Day Years Used Date Smoking Tobacco: Never Smokeless Tobacco: Never Tobacco Cessation:Counseling Given: Not Answered Alcohol Use Standard Drinks/Week Comments Never 0 (1 standard drink = 0.6 oz pur e alcohol) AUDIT-C Answer Date Recorded Q1: How often do you have a drink containing alcohol? Monthly or less 10/15/2024 Q2: How many drinks containi ng alcohol do you have on a typical day when you are drinking? Patient does not drink Q3: How often do you have si x or more drinks on one occasion? Never 10/15/2024 PHQ-2 Answer Date Recorded PHQ-2 Total Score (If total score is 3 or more points, staff should administer the PHQ-9) 0 10/15/2024 PHQ-9 Answer Date Recorded PHQ-9 Total Score 0 10/15/2024 Personal Safety Answer Date Recorded Have you ever been in or are you currently in a harmful physical or emotional relationship or is someone making you feel afraid or unsafe? 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 Sexual Orientation Not on file Last Filed Vital Signs Vital Sign Reading Time Taken Comments Blood Pressure 120/80 10/15/2024 12:32 PM CDT Pulse 87 10/15/2024 12:32 PM CDT Temperature 36.2 C (97.1 F) 10/15/2024 12:32 PM CDT Respiratory Rate 16 10/15/2024 12:3 2 PM CDT Oxygen Saturation 97% 10/15/2024 12: 32 PM CDT Inhaled Oxygen Concentration - - Weight 106.1 kg (233 lb 12.8 oz) 06/18/ 2025 12:32 PM CDT Height 170.2 cm (5' 7) 10/15/2024 12:3 2 PM CDT Body Mass Index 36.62 10/15/2024 12:32 PM CDT Plan of Treatment Not on file Medical Devices Implanted Type Area Cook Relief Device Identifier Shelf Expiration Date Model / Serial / Lot [employer] Tvt Prolene 45x1.1cm Tape Mesh Transvaginal Blue [id number] - [id number] Implanted:Qty: 1 on 04/15/2024 by Candelario Underwood MD at [facility] Other - see comments N/A: Vagina [employer] [id number] 10/27/2025 [id number] / / Description:[employer]ne[employer] TVT Dev ice Blue Prolene Non-Absorable Tape Procedures Procedure Name Priority Date/Time Associated Diagnosis Comments XR SPINE CERVICAL 2 OR 3 VIEWS Schedule Routine, Read Routine (OP Routine) 11/06/2024 3:18 PM CDT Neck pain XR SPINE LUMBAR 2 OR 3 VIEWS Schedule Routine, Read Routine (OP Routine) 11/06/2024 3:18 PM CDT Acute bilateral low back pain without sciatica EGFR Routine 10/17/2024 9:01 AM CDT Health maintenance examination Irritable bowel syndrome with both constipation and diarrhea Tension headache Neck pain Acute bilateral low back pain without sciatica Class 2 obesity due to excess calories without serious comorbidity with body mass index (BMI) of 36.0 to 36.9 in adult Screening, lipid Screening for thyroid disorder LIPID PANEL Routine 10/17/2024 9:01 AM CDT Health maintenance examination Irritable bowel syndrome with both constipation and diarrhea Tension headache Neck pain Acute bilateral low back pain without sciatica Class 2 obesity due to excess calories without serious comorbidity with body mass index (BMI) of 36.0 to 36.9 in adult Screening, lipid Screening for thyroid disorder COMPREHENSIVE METABOLIC PANEL Routine 10/17/2024 9:01 AM CDT Health maintenance examination Irritable bowel syndrome with both constipation and diarrhea Tension headache Neck pain Acute bilateral low back pain without sciatica Class 2 obesity due to excess calories without serious comorbidity with body mass index (BMI) of 36.0 to 36.9 in adult Screening, lipid Screening for thyroid disorder THYROID FUNCTION CASCADE Routine 10/17/2024 9:01 AM CDT Health maintenance examination Irritable bowel syndrome with both constipation and diarrhea Tension headache Neck pain Acute bilateral low back pain without sciatica Class 2 obesity due to excess calories without serious comorbidity with body mass index (BMI) of 36.0 to 36.9 in adult Screening, lipid Screening for thyroid disorder HEMOGLOBIN A1C Routine 10/17/2024 9:01 AM CDT Health maintenance examination Irritable bowel syndrome with both constipation and diarrhea Tension headache Neck pain Acute bilateral low back pain without sciatica Class 2 obesity due to excess calories without serious comorbidity with body mass index (BMI) of 36.0 to 36.9 in adult Screening, lipid Screening for thyroid disorder FLUORO GUIDED ASPIRATION OR INJECTION LARGE JOINT RIGHT Schedule Routine, Read Routine (OP Routine) 09/24/2024 1:14 PM CDT Right hip pain XR HIP RIGHT W PELVIS 2 OR 3 VIEWS Schedule Routine, Read Routine (OP Routine) 09/11/2024 1:01 PM CDT Right hip pain PAP AND HPV, REFLEX TO HPV GENOTYPES Routine 09/03/2023 4:10 PM CDT Pap smear, as part of routine gynecological examination Special screening examination for human papillomavirus (HPV) DIAGNOSTIC MAMMOGRAM BILATERAL W ROJAS Schedule Routine, Read Routine (OP Routine) 03/08/2023 2:36 PM LEGAL ACTIVITY ADJUDICATOR Abnormal mammogram from Last 3 Months or Most Recently Relevant to Health Maintenance Results * XR Spine Lumbar 2 or 3 Views (11/06/2024 3:18 PM CDT) Anatomical Region Laterality Modality Spine N/A Computed Radiogr aphy 11/09/2024 8:41 AM CDT Narrative 11/09/2024 8:45 AM CDT EXAM DESCRIPTION: 1. XR SPINE LUMBAR 2 OR 3 VIEWS; 2. XR SPINE CERVICAL 2 OR 3 VIEWS REASON FOR STUDY: low back pain Low back pain for approx 10 years ; Neck pain Neck pain and headaches progressively worsening over the past 10 years FINDINGS: Three views lumbar spine and two views cervical spine submitted without comparison. Cervical spine: No acute fracture. No prevertebral soft tissue swelling. Mild cervical kyphosis. Mild C4-C5, moderate C5-C6 and mild C6-C7 degenerative disc disease. Bilateral C5-C6 uncovertebral osteoarthritis. Lumbar spine: No acute fracture. Minimal levocurvature of the lumbar spine. Inferior lumbar facet osteoarthritis is present. Mild L5-S1 degenerative disc disease. IMPRESSION: 1. [id number] C4-C7 degenerative disc disease, greatest at C5-C6 with bilateral uncovertebral osteoarthritis. 2. Mild L5-S1 degenerative disc disease with inferior lumbar facet osteoarthritis. THIS IS AN ELECTRONICALLY VERIFIED FINAL REPORT 11/09/2024 8:45 AM - Electronically signed by Joe DURAN: ROGER Report ID: [id number] Reading Location: [id number] Procedure Note Joe Davis MD - 11/09/2024 EXAM DESCRIPTION: 1. XR SPINE LUMBAR 2 OR 3 VIEWS; 2. XR SPINE CERVICAL 2 OR 3 VIEWS REASON FOR STUDY: low back pain Low back pain for approx 10 years ; Neck pain Neck pain and headaches progressively worsening over the past 10 years FINDINGS: Three views lumbar spine and two views cervical spine submitted without comparison. Cervical spine: No acute fracture. No prevertebral soft tissue swelling. Mild cervical kyphosis. Mild C4-C5, moderate C5-C6 and mild C6-C7 degenerative disc disease. Bilateral C5-C6 uncovertebral osteoarthritis. Lumbar spine: No acute fracture. Minimal levocurvature of the lumbar spine. Inferior lumbar facet osteoarthritis is present. Mild L5-S1 degenerative discdisease. IMPRESSION: 1. Qmtx-oj-mrufepds C4-C7 degenerative disc disease, greatest at C5-C6with bilateral uncovertebral osteoarthritis. 2. Mild L5-S1 degenerative disc disease with inferior lumbar facet osteoarthritis. THIS IS AN ELECTRONICALLY VERIFIED FINAL REPORT 11/09/2024 8:45 AM - Electronically signed by Joe Davis M.D. MF: ROGER Report ID: [id number] Reading Location: [id number] Altagracia Francisco Bambimarci TERELL IMG XR PROCEDURES Final Result * XR Spine Cervical 2 or 3 Views (11/06/2024 3:18 PM CDT) Anatomical Region Laterality Modality Spine N/A Computed Radiogr aphy 11/09/2024 8:41 AM CDT Narrative 11/09/2024 8:45 AM CDT EXAM DESCRIPTION: 1. XR SPINE LUMBAR 2 OR 3 VIEWS; 2. XR SPINE CERVICAL 2 OR 3 VIEWS REASON FOR STUDY: low back pain Low back pain for approx 10 years ; Neck pain Neck pain and headaches progressively worsening over the past 10 years FINDINGS: Three views lumbar spine and two views cervical spine submitted without comparison. Cervical spine: No acute fracture. No prevertebral soft tissue swelling. Mild cervical kyphosis. Mild C4-C5, moderate C5-C6 and mild C6-C7 degenerative disc disease. Bilateral C5-C6 uncovertebral osteoarthritis. Lumbar spine: No acute fracture. Minimal levocurvature of the lumbar spine. Inferior lumbar facet osteoarthritis is present. Mild L5-S1 degenerative disc disease. IMPRESSION: 1. Murh-ii-zrpdshrv C4-C7 degenerative disc disease, greatest at C5-C6 with bilateral uncovertebral osteoarthritis. 2. Mild L5-S1 degenerative disc disease with inferior lumbar facet osteoarthritis. THIS IS AN ELECTRONICALLY VERIFIED FINAL REPORT 11/09/2024 8:45 AM - Electronically signed by Joe Davis M.D. MF: ROGER Report ID: [id number] Reading Location: [id number] Procedure Note Joe Davis MD - 11/09/2024 EXAM DESCRIPTION: 1. XR SPINE LUMBAR 2 OR 3 VIEWS; 2. XR SPINE CERVICAL 2 OR 3 VIEWS REASON FOR STUDY: low back pain Low back pain for approx 10 years ; Neck pain Neck pain and headaches progressively worsening over the past 10 years FINDINGS: Three views lumbar spine and two views cervical spine submitted without comparison. Cervical spine: No acute fracture. No prevertebral soft tissue swelling. Mild cervical kyphosis. Mild C4-C5, moderate C5-C6 and mild C6-C7 degenerative disc disease. Bilateral C5-C6 uncovertebral osteoarthritis. Lumbar spine: No acute fracture. Minimal levocurvature of the lumbar spine. Inferior lumbar facet osteoarthritis is present. Mild L5-S1 degenerative discdisease. IMPRESSION: 1. Vpfw-in-nkixxckh C4-C7 degenerative disc disease, greatest at C5-C6with bilateral uncovertebral osteoarthritis. 2. Mild L5-S1 degenerative disc disease with inferior lumbar facet osteoarthritis. THIS IS AN ELECTRONICALLY VERIFIED FINAL REPORT 11/09/2024 8:45 AM - Electronically signed by Joe Davis M.D. MF: ROGER Report ID: [id number] Reading Location: [place] [id number] Altagracia FIGUEREDO IMG XR PROCEDURES Final Result * eGFR (10/17/2024 9:01 AM CDT) eGFR >90 >=60 mL/min/1. 73 m2 Comment: Interpretive Data Reference Interval Normal >/= 90 mL/min/1.73m2 Mildly decreased* 60 - 89 mL/min/1.73m2 Mildly to moderately decreased 45 - 59 mL/min/1.73m2 Moderately to severely decreased 30 - 44 mL/min/1.73m2 Severely decreased 15 - 29 mL/min/1.73m2 Kidney Failure < 15 mL/min/1.73m2 *Relative to young adult level Estimated glomerular filtration rate is determined by the 2020 CKD-EPI equation recommended by the National Kidney Foundation (A Unifying Approach to GFR Estimation: Recommendations of the NKF-ASK Task Force on Reassessing the Inclusion of Race in Diagnosing Kidney Disease, JASN 2020). The CKD-EPI equation should not be used for patients with unstable renal function and has not been validated in children and those over 70. Current interpretive data was last reviewed 2021. Testing performed by: [facility], [address] [place] [address]., [id number] Blood 10/17/2024 9:01 AM CDT 10/17/2024 11:17 AM CDT Altagracia FIGUEREDO LAB BLOOD ORDERABLES Final Res ult Performing Organization Address City/[facility] Co de Phone Number R[facility]AN [facility] [place] [address] * Thyroid Function Marion (10/17/2024 9:01 AM CDT) TSH 1.70 0.30 - 4.20 mcIUnit/mL Comment:Testing performed by : [address] [address] Blood 10/17/2024 9:01 AM CDT 10/17/2024 11:17 AM CDT Altagracia FIGUEREDO LAB BLOOD ORDERABLES Final Res ult Performing Organization Address [facility] de Phone Number RYAN [address] [place] [address] * (ABNORMAL) Hemoglobin A1c (10/17/2024 9:01 AM CDT) Hgb A1C 5.9(H) 4.0 - 5.6 % Comment:Testing performed by : [address] [address] Estimated Average Glucose 123 mg/dL RYAN Comment: The ADA recommends reporting an estimated Average Glucose (eAG) with all Hemoglobin A1c results using the equation derived from a study of 507 normal and diabetic adults. Minority populations were underrepresented and children were not included. (Diabetes Care 31:9210-8523, 2008). The eAG is not equivalent to a fasting glucose. Testing performed by: [address] [address] Blood 10/17/2024 9:01 AM CDT 10/17/2024 11:17 AM CDT Altagracia FIGUEREDO LAB BLOOD ORDERABLES Final Res ult Performing Organization Address [facility] Co de Phone Number [place] [phone] [facility] [place] [address] * (ABNORMAL) Lipid panel (10/17/2024 9:01 AM CDT) Cholesterol 223(H) 30 - 199 mg/dL Comment: Interpretive Data Ages < or = 19 years Acceptable: <170 mg/dL Borderline high: 170-199 mg/dL High: >or= 200 mg/dL Ages > or = 20 years Desirable: <200 mg/dL Borderline high: 200-239 mg/dL High: >or= 240 mg/dL Literature References: 1. Expert Panel on Integrated Guidelines for Cardiovascular Health and Risk Reduction in Children and Adolescents. Pediatrics 2011;128:S213 2. NCEP Expert Panel. Circulation 2004;110:227 Current Interpretive Data was last revised on 2017. Testing performed by: [address] [address] Triglycerides 98 <=149 mg/dL RYAN Comment: Interpretive Data Ages < or = 9 years Acceptable: <75 mg/dL Borderline high: 75-99 mg/dL High: >or= 100 mg/dL Ages 10 to 20 years Acceptable: <90 mg/dL Borderline high: 90-129 mg/dL High: >or= 130 mg/dL Ages > or = 20 years Desirable: <150 mg/dL Borderline high: 150-199 mg/dL High: 200-499 mg/dL Very high: >or= 499 mg/dL Literature References: 1. Expert Panel on Integrated Guidelines for Cardiovascular Health and Risk Reduction in Children and Adolescents. Pediatrics 2011;128:S213 2. NCEP Expert Panel. Circulation 2004;110:227 Current Interpretive Data was last revised on 2017. Testing performed by: [address] [address] HDL 49 >=40 mg/dL RYAN Comment: Interpretive Data Ages < or = 19 years Acceptable: >45 mg/dL Borderline low: 40-45 mg/dL Low: <40 mg/dL Ages > or = 20 years Desirable: >or= 60 mg/dL Low: <40 mg/dL Literature References: 1. Expert Panel on Integrated Guidelines for Cardiovascular Health and Risk Reduction in Children and Adolescents. Pediatrics 2011;128:S213 2. NCEP Expert Panel. Circulation 2004;110:227 Current Interpretive Data was last revised on 2017. Testing performed by: [address] [address] LDL, calculated 157(H) <=129 mg/dL RYAN BIRCH Comment: Interpretive Data Ages < or = 19 years Acceptable: <110 mg/dL Borderline high: 110-129 mg/dL High: >or= 130 mg/dL Ages > or = 20 years Optimal: <100 mg/dL Near optimal: 100-129 mg/dL Borderline high: 130-159 mg/dL High: >160 mg/dL Calculated using the Eron LDL-C estimating equation. This equation was implemented on 2023. Prior to this date LDL-C was estimated using the Friedewald equation. Literature References: 1. Expert Panel on Integrated Guidelines for Cardiovascular Health and Risk Reduction in Children and Adolescents. Pediatrics 2011;128:S213 2. NCEP Expert Panel. Circulation 2004;110:227 3. Eron Caceres et al. EZ Cardiol. 2019August 28;5(5):540-548. doi: 10.1001/[email or web address].2020.0013 Current Interpretive Data was last revised on 2023. Testing performed by: [address] [address] Non-HDL Cholesterol 174 mg/dL RYAN BIRCH Comment: Interpretive Data Ages < or = 19 years Acceptable: <120 mg/dL Borderline high: 120-144 mg/dL High: >145 mg/dL Ages > or = 20 years When triglycerides are >200 mg/dL, Non-HDL cholesterol is a secondary target of therapy with treatment goals that are 30 mg/dL greater than the LDL cholesterol target. Literature References: 1. Expert Panel on Integrated Guidelines for Cardiovascular Health and Risk Reduction in Children and Adolescents. Pediatrics 2011;128:S213 2. NCEP Expert Panel. Circulation 2004;110:227 Current Interpretive Data was last revised on 2017. Testing performed by: [address] [address] Chol/HDL ratio 5 RYAN Comment:Testing performed by : [address] [address] Blood 10/17/2024 9:01 AM CDT 10/17/2024 11:17 AM CDT us Altagracia FIGUEREDO LAB BLOOD ORDERABLES Final Res ult RYAN [address] [facility] Department [place] [address] * (ABNORMAL) Comprehensive metabolic panel (10/17/2024 9:01 AM CDT) Sodium 139 135 - 145 mmol/L Comment:Testing performed by : [address] [address] Potassium, pl 4.0 3.3 - 4.9 mmol/L RYAN Comment:Testing performed by : [address] [address] Chloride 103 97 - 110 mmol/L RYAN Comment:Testing performed by : [address] [address] CO2 28 22 - 32 mmol/L RYAN Comment:Testing performed by : [address] [address] Anion gap 8 2 - 15 mmol/L RYAN Comment:Testing performed by : [address] [address] BUN 11 6 - 25 mg/dL RYAN Comment:Testing performed by : [address] [address] Creatinine 0.80 0.60 - 1.10 mg/dL RYAN Comment:Testing performed by : [address] [address] Glucose 106 70 - 199 mg/dL RYAN Comment: Interpretive Data Fasting glucose >/= 126 mg/dl is diagnostic for diabetes. Fasting is defined as no caloric intake for at least 8 hours. Fasting glucose between 100 mg/dl to 125 mg/dl is diagnostic of prediabetes. In a patient with classic symptoms of hyperglycemia or hyperglycemic crisis, a random glucose >/= 200 mg/dl is diagnostic for diabetes. In the absence of unequivocal hyperglycemia, results should be confirmed by repeat testing. The classification and Diagnosis of Diabetes Diabetes Care 2021; 46: S19-S40. Current interpretive data was last revised 2022. Testing performed by: [address] [address] Calcium 9.3 8.5 - 10.3 mg/dL RYAN Comment:Testing performed by : [address] [address] Bilirubin, total 0.6 0.1 - 1.2 mg/dL RYAN Comment:Testing performed by : [address] [address] Protein, pl 7.1 6.5 - 8.5 g/dL RYAN Comment:Testing performed by : [address] [address] Albumin 4.4 3.5 - 5.0 g/dL RYAN Comment:Testing performed by : [address] [address] Alk phos 38(L) 40 - 130 Units/L RYAN Comment:Testing performed by : [address] [address] ALT 18 7 - 45 Units/L RYAN Comment:Testing performed by : [address] [address] AST 14 10 - 45 Units/L [facility] Comment:Testing performed by : [address] [address] Blood 10/17/2024 9:01 AM CDT 10/17/2024 11:17 AM CDT us Altagracia FIGUEREDO LAB BLOOD ORDERABLES Final Res ult RYAN [address] [facility] Department [place] [address] * FL Fluoro Guided Aspiration or Injection Large Joint Right (09/24/2024 1:14 PM CDT) Anatomical Region Laterality Modality Body Right Computed Radiogr aphy, Computed Radiography 09/24/2024 2:33 PM CDT Narrative 09/24/2024 2:34 PM CDT EXAM DESCRIPTION: FL FLUORO GUIDED ASPIRATION OR INJECTION LARGE JOINT RIGHT REASON FOR STUDY: right hip pain Right hip pain COMPARISON: 07/10/2023 RADIATION DOSE: Needle placement was documented with a fluoroscopic image. Dose: 88.03 uGym? Dose Area Product (DAP) TECHNIQUE/FINDINGS: After informed consent including the risks, benefits, and alternatives, the patient was placed on the fluoroscopy table. The right hip was localized with fluoroscopy. After localization, the right hip was prepped and draped in usual sterile fashion. 1% lidocaine was utilized for local anesthetic. A 22-gauge spinal needle was advanced into the right hip joint from anterior approach. 1 mL of Omnipaque 240 was injected to confirm needle placement within the joint. After confirmation of needle placement, 3 mL of a solution of 2 mL bupivacaine and 1 mL Kenalog 40 mg was injected into the joint space under fluoroscopy. Hard copy image was obtained. The patient tolerated the procedure well. IMPRESSION: 1. Technically successful fluoroscopic guided right hip steroid injection. THIS IS AN ELECTRONICALLY VERIFIED FINAL REPORT 09/24/2024 2:34 PM - Electronically signed by Christiana Hensley D.O. PS: PS Report ID: [id number] Reading Location: [id number] Procedure Note Christiana Hensley DO - 09/24/2024 EXAM DESCRIPTION: FL FLUORO GUIDED ASPIRATION OR INJECTION LARGE JOINTRIGHT REASON FOR STUDY: right hip pain Right hip pain COMPARISON: 07/10/2023 RADIATION DOSE: Needle placement was documented with a fluoroscopicimage. Dose: 88.03 uGym? Dose Area Product (DAP) TECHNIQUE/FINDINGS: After informed consent including the risks, benefits,and alternatives, the patient was placed on the fluoroscopy table. The right hip was localized with fluoroscopy. After localization, theright hip was prepped and draped in usual sterile fashion. 1% lidocaine wasutilized for local anesthetic. A 22-gauge spinal needle was advanced into the righthip joint from anterior approach. 1 mL of Omnipaque 240 was injected toconfirm needle placement within the joint. After confirmation of needle placement, 3 mL of a solution of 2 mLbupivacaine and 1 mL Kenalog 40 mg was injected into the joint space underfluoroscopy. Hard copy image was obtained. The patient tolerated the procedure well. IMPRESSION: 1. Technically successful fluoroscopic guided right hip steroidinjection. THIS IS AN ELECTRONICALLY VERIFIED FINAL REPORT 09/24/2024 2:34 PM - Electronically signed by Christiana Hensley D.O. 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 Dictated by: Donaldo Roman M.D. The radiology attending physician has personally reviewed this study, and had reviewed and/or edited this written report and agrees with it. Electronically signed by: Dwaine Jones D.O. Narrative 09/16/2024 7:25 AM CDT EXAMINATION: XR HIP RIGHT 2 OR 3 VIEWS W PELVIS HISTORY: Right hip pain FINDINGS: 2 radiographs of the right hip are compared to 01/03/2023. No acute or dislocation. Unchanged findings of bilateral hip dysplasia of the bilateral decreased femoral head and neck junction offset. Joint spaces are preserved. Unchanged benign-appearing sclerotic lesion in the proximal right femoral shaft. Procedure Note Dwaine Jones DO - 09/16/2024 EXAMINATION: XR HIP RIGHT 2 OR 3 VIEWS W PELVIS HISTORY: Right hip pain FINDINGS: 2 radiographs of the right hip are compared to 01/03/2023. No acute or dislocation. Unchanged findings of bilateral hip dysplasia of the bilateral decreased femoral head and neck junction offset. Joint spaces are preserved. Unchanged benign-appearing sclerotic lesion in the proximal right femoral shaft. 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 Dictated by: Donaldo Roman M.D. The radiology attending physician has personally reviewed this study, and had reviewed and/or edited this written report and agrees with it. Electronically signed by: Dwaine Jones D.O. Khalida Winters MD IMG XR PROCEDURES Fin al Result * Pap and HPV, reflex to HPV Genotypes (09/03/2023 4:10 PM CDT) CLINICAL INFORMATION: [facility] Comment:None given LMP [facility] Comment:08/14/23 Previous Pap [facility] Comment:None given Prev. Bx [facility] Comment:None given SOURCE: [facility] Comment:Cervix, Endocervix Pap, specimen adequacy [facility] Comment: Satisfactory for evaluation. Endocervical/transformation zone component present. HPV interp [facility] Comment: Cytology Results: Negative for intraepithelial lesion or malignancy. COMMENTS [facility] Comment: This Pap test has been evaluated with computer assisted technology. Life Sciences Instructor [facility] Comment: BES, CT(ASCP) CT screening location: [place] [address] [place] [address] Comment [facility] Comment: EXPLANATORY NOTE: The Pap is a screening test for cervical cancer. It is not a diagnostic test and is subject to false negative and false positive results. It is most reliable when a satisfactory sample, regularly obtained, is submitted with relevant clinical findings and history, and when the Pap result is evaluated along with historic and current clinical information. Human papillomavirus DNA, High Risk E6/E7 Not Detected NOT DETECTED [employer] [facility] [place] Comment: Not Detected High Risk HPV types (16,18,31,33,35,39,45,51,52, 56,58,59,66,68) were not detected. Other HPV types which cause anogenital lesions may be present. The significance of the other types of HPV in malignant processes has not been established. Methodology: Real Time PCR Thin prep 09/03/2023 4:10 PM CDT 09/04/2023 4:21 AM CDT us Altagracia FIGUEREDO LAB CYTOLOGY ORDERABLES Final Result [facility] [address] [place] [address] [facility] [address] [place] [address] * DIAGNOSTIC MAMMOGRAM BILATERAL W ROJAS (03/08/2023 2:36 PM LEGAL ACTIVITY ADJUDICATOR) Anatomical Region Laterality Modality Breast Bilateral Mammography 03/08/2023 3:12 PM LEGAL ACTIVITY ADJUDICATOR Impressions 03/08/2023 3:20 PM LEGAL ACTIVITY ADJUDICATOR 1. Benign 2.9 cm simple cyst at the 10 o'clock position of the right breast, 9 cm from the nipple corresponds with the largest mammographic mass in the right breast. 2. Benign group of simple cysts (largest measuring 2.0 cm) at the 2 o'clock position of the left breast, 12-13 cm from the nipple corresponds with the largest mammographic mass/masses in the left breast. 3. Other smaller similar appearing round and oval circumscribed masses in both breasts on mammogram are considered benign based on their morphology, multiplicity, and bilaterality. These are favored to represent smaller benign cysts. 4. No evidence of malignancy in either breast on mammogram or targeted ultrasound. Monthly self-breast examination and screening mammogram in 1 year are recommended. BIRADS 2 - Benign findings. I discussed these findings and impression with the patient at the time of the examination. THIS IS AN ELECTRONICALLY VERIFIED FINAL REPORT 03/08/2023 3:20 PM - Electronically signed by Karri Davidson M.D., MD: Report ID: [id number] Reading Location: MAMME Narrative 03/08/2023 3:20 PM LEGAL ACTIVITY ADJUDICATOR EXAM DESCRIPTION: US BREAST BILATERAL LIMITED; DIAGNOSTIC MAMMOGRAM BILATERAL W ROJAS REASON FOR STUDY: 43-year-old female recalled for indeterminate bilateral breast masses on baseline screening mammogram. COMPARISON: Screening mammogram from 02/13/2023 TECHNIQUE: Full field LM views and spot compression CC and MLO views of the bilateral breasts were obtained with digital technique using breast tomosynthesis with C view. Limited ultrasound of the bilateral breasts was performed with grayscale and color Doppler. FINDINGS: DENSITY: The breasts are heterogeneously dense, which may obscure small masses. MAMMOGRAM FINDINGS: There are multiple similar appearing round and oval circumscribed masses in both breasts. These are most consistent with benign etiologies (likely cysts) based on their morphology, multiplicity, and bilaterality. The largest mass in the right breast measures approximately 2.9 cm at the 10 o'clock position, 9 cm from the nipple. The largest grouping of masses in the left breast spans a maximum distance of approximately 5.5 cm at the 2 o'clock position, 12-13 cm from the nipple. The largest of these grouped masses in the left breast measures approximately 1.9 cm. There are no suspicious microcalcifications or architectural distortion associated with any of these masses in either breast. The largest right breast mass and the largest grouping of left breast masses will be further characterized on ultrasound for purpose of reassurance. Other smaller masses in both breasts are considered benign (likely cysts). There is no other suspicious finding in either breast on mammogram. ULTRASOUND FINDINGS: Targeted ultrasound of the right breast at the 10 o'clock position, 9 cm from the nipple demonstrates a 2.7 x 1.4 x 2.9 cm oval circumscribed anechoic mass with parallel orientation, increased through transmission, and no evidence of internal blood flow on color Doppler. This represents a benign simple cyst and corresponds with the largest described mammographic mass in the right breast. Targeted ultrasound of the left breast at the 2 o'clock position, 12-13 cm from the nipple demonstrates a group of similar appearing oval circumscribed masses with parallel orientation, increased through transmission, and no evidence of internal blood flow on color Doppler. These masses measure 1.4 x 0.7 x 0.9 cm, 1.2 x 0.6 x 1.2 cm, 1.1 x 0.4 x 0.9 cm, and 1.5 x 0.6 x 2.0 cm, respectively. These represent benign simple cysts and correspond with the grouped masses described in the mammographic findings section. us Altagracia FIGUEREDO IMG MAMMO PROCEDURES Final Res ult from Last 3 Months or Most Recently Relevant to Health Maintenance Insurance Care Teams Butcher Assistant Relationship Specialty Start Date End Date Altagracia Velazquez PA [address] [facility] [place] [address] PCP - General Family Medicine 01/20/19 Kevin Pascual MD [address] [place] [address] Consulting Physician Family Medicine 01/20/19
--- OUTSIDE RECORDS SUMMARY | 2024-11-23 17:10 | XMS_ITS | Clinical Summary ---
Author Organization [address] Address [address] [address] Care Team Providers Care Tube Repairer Name Role Phone Altagracia Velazquez Primary Care Provider [phone] Kevin Pascual MD Unavailable [phone] Allergies Active Allergy Reactions Criticality Noted Date [...] Future Comprehensive metabolic panel; Future Thyroid Function [place]; Future Hemoglobin A1c; Future Assessment & Plan (10/15/2024 1:09 PM CDT): Orders: metaxalone (SKELAXIN) 800 mg tablet; Take 1 tablet (800 mg total) by mouth 3 (three) times a day as needed for muscle spasms Lipid panel; Future Comprehensive metabolic panel; Future Thyroid Function Lyon; Future Hemoglobin A1c; Future Mild persistent asthma [...] Future Comprehensive metabolic panel; Future Thyroid Function Lyon; Future Hemoglobin A1c; Future Assessment & Plan (10/15/2024 1:09 PM CDT): Orders: Lipid panel; Future Comprehensive metabolic panel; Future Thyroid Function Lyon; Future Hemoglobin A1c; Future Migraine headache 06/27/2023 [...] Future Comprehensive metabolic panel; Future Thyroid Function [place]; Future Hemoglobin A1c; Future Assessment & Plan (10/15/2024 1:09 PM CDT): PMH: 10/15/24 Last pap: 09/03/23 Last mammogram: 03/08/23 Last dexa: Last colonoscopy/cologuard: Last tdap: 09/03/23 Last Prevnar/pneumovax: Last Shingrix: Last eye exam: 2023 Orders: Lipid panel; Future Comprehensive metabolic panel; Future Thyroid Function Lyon; Future Hemoglobin A1c; Future Assessment & Plan [...] Future Comprehensive metabolic panel; Future Thyroid Function Lyon; Future Hemoglobin A1c; Future Assessment & Plan (10/15/2024 1:09 PM CDT): Orders: Lipid panel; Future Comprehensive metabolic panel; Future Thyroid Function [place]; Future Hemoglobin A1c; Future Assessment & Plan [...] directed, f/u in am if extends from [place] drawn on arm or if develop fever Oligomenorrhea 06/27/2023 09/03/2023 Overview (06/27/2023): labs wnl, LMP 2 weeks ago, reassurance given continue f/u cycles on calander Otitis media 06/27/2023 09/03/2023 Pain in wrist 06/27/2023 09/03/2023 Pain of finger 06/27/2023 09/03/2023 Perioral dermatitis 06/27/2023 09/03/19 Plantar wart 06/27/2023 09/03/2023 Overview (06/27/2023): LN2 tx today, instructed on use of mediplast w/ duct tape occlusion, f/u prn Epigastric pain 06/27/2023 09/03/2023 Skin cancer 06/27/2023 09/03/2023 Unspecified urinary incontinence 06/27/2023 09/03/2023 Seasonal allergies 02/07/2019 Assessment & Plan (02/07/2019 11:38 AM CDT): Uncontrolled. Continue Zyrtec and add Flonase Encounters Date Type Department Care Team Description 11/06/2024 2:59 PM CDT - 11/06/2024 11:59 PM CDT Hospital Encounter [facility] Diagnostic Imaging [address] [place] [address] Acute bilateral low back pain without sciatica; Neck pain Discharge Disposition: Discharge to home or self care 10/17/2024 8:55 AM CDT Lab [facility] OP Lab [address] [place] [address] Health maintenance examination; Irritable bowel syndrome with both constipation and diarrhea; Tension headache; Neck pain; Acute bilateral low back pain without sciatica; Class 2 obesity due to excess calories without serious comorbidity with body mass index (BMI) of 36.0 to 36.9 in adult; Screening, lipid; Screening for thyroid disorder 10/17/2024 Results Follow-Up [facility] [address] [address] Altagracia Velazquez PA Hemoglobin A1c, Thyroid Function Lyon, Comprehensive metabolic panel, Additional followed-up results: 3 10/15/2024 12:30 PM CDT Office Visit [facility] [address] [address] Altagracia Velazquez PA Health maintenance examination [...] - 09/24/2024 11:59 PM CDT Hospital Encounter [facility] Diagnostic Imaging [address] [place] [address] Right hip pain Discharge Disposition: Discharge to home or self care 09/17/2024 Orders Only [facility] Orthopaedic Surgery [address] [place] [address] Office [address] [place] [address] Khalida Dickson MD Right hip pain (Primary Dx) 09/11/2024 2:15 PM CDT Office Visit [facility] Orthopaedic Surgery [address] [place] [address] Office [facility] [address] [place] [address] Khalida Dickson MD Right hip pain (Primary Dx); Chronic right hip pain; Hip dysplasia 09/11/2024 12:52 PM CDT - 09/11/2024 11:59 PM CDT Hospital Encounter [facility] [address] [place] [address] [address] [place] [address] Right hip pain Discharge Disposition: Discharge to home or self care 08/26/2024 Telephone [facility] Family Medicine [address] [address] Altagracia Velazquez PA Referral Request from Last 3 Months Immunizations Immunization Administration Dates Next Due Hep B, Unspecified 02/18/2008 Influenza, Quadrivalent, Spl it, Preservative Free, Intramuscular 04/15/2023,02/27/2022,02/05/2021,02/07 Influenza, Trivalent, Cell Culture-based MDCK, Preservative Free, Antibiotic Free, Intramuscular 02/28/2022 Influenza, Unspecified 01/29/2024(Deferr ed: Patient Refused),02/15/2018,03/08/2015, 014,04/06/2010,03/17/2009,02/18/2008 MMR 02/24/2008 PPD TEST 02/18/2008 Pfizer SARS-CoV-2 Monovalent Vaccination (12+ Yrs) PURPLE 04/25/2021,07/08/2020,06/15/2020 Tdap 09/03/2023,09/17/2013,02/18/2008 Surgical History Surgery Date Site/Laterality Comments APPENDECTOMY 04/30/1991 - 04/29/1992 CHOLECYSTECTOMY 04/30/2009 - 04/29/2010 FLUORO GUIDED ASPIRATION OR INJECTION LARGE JOINT RIGHT 07/10/2023 Right URETHRAL SLING 04/15/2024 ANTERIOR AND POSTERIOR VAGINAL REPAIR 04/15/2024 FLUORO GUIDED ASPIRATION OR INJECTION LARGE JOINT RIGHT 09/24/2024 Right Medical History Medical History Date Comments Seasonal allergies Calculus of gallbladder 06/27/2023 Congenital malformation 06/27/2023 Bilatera l Hip Dysplasia Varicella Metrorrhagia 06/27/2023 Migraines 1989 Ovarian cyst 2006 Polycystic ovary syndrome 2006 Urinary incontinence 2014 Anemia 2000 Inflammatory bowel disease 1990 Cystocele, midline 01/18/2024 Rectocele 01/18/2024 Mixed stress and urge urinary incontinence 01/17 Urethral sphincter deficiency, intrinsic (ISD) 1 06/12/2023 Family History Medical History Relation Name Comments Neuropathy Father feet Prostate cancer Father Alzheimer's disease Maternal Grandfather Art Cancer Maternal Grandfather Art colon Diabetes Maternal Grandfather Art Breast cancer Maternal Grandmother Arvilla Cancer Maternal Grandmother Arvilla vaginal /intestional age 41 Uterine cancer Maternal Grandmother Arvilla Cancer Mother Silvia Heart disease Mother Silvia Hyperlipidemia Mother Silvia Hypertension Mother Silvia Melanoma Mother Silvia Parkinsonism Paternal Grandfather Gastroesophageal Reflux Disease Sister Relation Name Status Comments Father Alive Maternal Grandfather Art Maternal Grandmother Arvilla Mother Silvia Alive Paternal Grandfather Paternal Grandmother Sister Alive Social History Tobacco Use Types Packs/Day Years [...] CDT Gender Identity Female 06/23/2024 7:00 AM FAMILY NURSE PRACTITIONER Sexual Orientation Not on file Obstetrics History Para Term AB IAB SAB Ectopic Multiple Livin g Live Births 4 3 3 1 1 3 3 Date Outcome GA Total Labor Labor/2nd/3rd Weight Sex Type Anes PTL Shena A1 A5 Name Clin Term Term Term SAB Last Filed Vital Signs Vital Sign Reading Time Taken Comments Blood Pressure 120/80 10/15/2024 12:32 PM CDT Pulse 87 10/15/2024 12:32 PM CDT Temperature 36.2 C (97.1 F) 10/15/2024 12:32 PM CDT Respiratory Rate 16 10/15/2024 12:3 2 PM CDT Oxygen Saturation 97% 10/15/2024 12: 32 PM CDT Inhaled Oxygen Concentration - - Weight 106.1 kg (233 lb 12.8 oz) 2024 12:32 PM CDT Height 170.2 cm (5' 7) 10/15/2024 12:3 2 PM CDT Body Mass Index 36.62 10/15/2024 12:32 PM CDT Plan of Treatment Health Maintenance Due Date Last Done Comments Hepatitis C Screening 1980 Pneumococcal vaccine <65 (1 of 2 - PCV) 01/08/1999 HPV Vaccines (1 - 3-dose SCD M series) 01/08/2007 Covid-19 Vaccine (2023-2 5 season) 2023 04/25/2021, 07/08/2020, 06/15/2020 Breast Cancer Screening-Mammogram 03/08/2024 023, 02/13/2023 Cervical Cancer Screening 09/02/2024 09/03/2023 Influenza Vaccine (#1) 2024 3, 02/28/2022, 02/27/2022, Additional history exists Depression Screening 10/15/2025 10/15/2024, 10/15/2024, 09/07/2023, Additional history exists Regular Well Visit/Exam 18-64 10/15/2025, 09/03/2023, 02/07/2019 DTaP/Tdap/Td Vaccine (4 - Td or Tdap) 09/02/2033 09/03/2023, 09/17/2013, 02/18/2008 Hepatitis B Screening Completed 02/18/2008 Medical Devices Implanted Type Area Career Placement Specialist Device Identifier Shelf Expiration Date Model / Serial / Lot [employer] Tvt Prolene 45x1.1cm Tape Mesh Transvaginal Blue [id number] - [id number] Implanted:Qty: 1 on 04/15/2024 by Candelario Underwood MD at [facility] Other - see comments N/A: Vagina [employer] [id number] 10/27/2025 [id number] / / Description:[employer] TVT Dev ice Blue [...] Read Routine (OP Routine) 03/08/2023 2:36 PM FAMILY NURSE PRACTITIONER Abnormal mammogram from Last 3 Months or [...] Mild L5-S1 degenerative disc disease. IMPRESSION: 1. Yzye-vp-uyohbmmv C4-C7 degenerative disc disease, greatest at C5-C6 with bilateral uncovertebral osteoarthritis. 2. Mild L5-S1 degenerative disc disease with inferior lumbar facet osteoarthritis. THIS IS AN ELECTRONICALLY VERIFIED FINAL REPORT 11/09/2024 8:45 AM - Electronically signed by Joe Davis M.D. MF: ROGER Report ID: [id number] Reading Location: [id number] Procedure Note Joe Davis MD - 11/09/2024 [...] present. Mild L5-S1 degenerative discdisease. IMPRESSION: 1. Pkvf-oq-mqtrdnrv C4-C7 degenerative disc disease, greatest at C5-C6with bilateral uncovertebral osteoarthritis. 2. Mild L5-S1 degenerative disc disease with inferior lumbar facet osteoarthritis. THIS IS AN ELECTRONICALLY VERIFIED FINAL REPORT 11/09/2024 8:45 AM - Electronically signed by Joe Davis M.D. MF: ROGER Report ID: [id number] Reading Location: [id number] Altagracia FIGUEREDO IMG XR PROCEDURES Final Result * XR [...] Mild L5-S1 degenerative disc disease. IMPRESSION: 1. Mjiy-ot-ppkzkrjb C4-C7 degenerative disc disease, greatest at C5-C6 with bilateral uncovertebral osteoarthritis. 2. Mild L5-S1 degenerative disc disease with inferior lumbar facet osteoarthritis. THIS IS AN ELECTRONICALLY VERIFIED FINAL REPORT 11/09/2024 8:45 AM - Electronically signed by Joe Davis M.D. MF: ROGER Report ID: [id number] Reading Location: [id number] Procedure Note Joe Davis MD - 11/09/2024 [...] present. Mild L5-S1 degenerative discdisease. IMPRESSION: 1. Zdzs-iz-tyazxnjp C4-C7 degenerative disc disease, greatest at C5-C6with bilateral uncovertebral osteoarthritis. 2. Mild L5-S1 degenerative disc disease with inferior lumbar facet osteoarthritis. THIS IS AN ELECTRONICALLY VERIFIED FINAL REPORT 11/09/2024 8:45 AM - Electronically signed by Joe Davis M.D. MF: ROGER Report ID: [id number] Reading Location: [id number] Altagracia FIGUEREDO IMG XR PROCEDURES Final Result [...] was last reviewed 2021. Testing performed by: [address] [address] Blood 10/17/2024 9:01 AM CDT 10/17/2024 11:17 AM CDT Altagracia FIGUEREDO LAB BLOOD ORDERABLES Final Res ult Performing Organization Address City/[facility] [address]/[facility] Co de Phone Number [facility] [address] [place] [address] [place] [address] * Thyroid Function Lyon (10/17/2024 9:01 AM CDT) TSH 1.70 0.30 - 4.20 mcIUnit/mL Comment:Testing performed by : [address] [address] Blood 10/17/2024 9:01 AM CDT 10/17/2024 11:17 AM CDT Altagracia FIGUEREDO LAB BLOOD ORDERABLES Final Res ult Performing Organization Address City/[facility] [address]/ZIP Co de Phone Number [facility] [address] [place] [address] * (ABNORMAL) Hemoglobin A1c (10/17/2024 9:01 AM CDT) Hgb A1C 5.9(H) 4.0 - 5.6 % Comment:Testing performed by : [address] [address] Estimated Average Glucose 123 mg/dL RYAN Comment: The ADA recommends reporting an estimated Average Glucose (eAG) with all Hemoglobin A1c results using the equation derived from a study of 507 normal and diabetic adults. Minority populations were underrepresented and children were not included. (Diabetes Care 31:7888-0359, 2008). The eAG is not equivalent to a fasting glucose. Testing performed by: [address] [address] Blood 10/17/2024 9:01 AM CDT 10/17/2024 11:17 AM CDT us Altagracia FIGUEREDO LAB BLOOD ORDERABLES Final Res ult RYAN [address] [facility] [place] [address] * (ABNORMAL) Lipid panel (10/17/2024 9:01 AM [...] last revised on 2017. Testing performed by: [address] [address] Triglycerides 98 <=149 mg/dL RYAN Comment: Interpretive [...] last revised on 2017. Testing performed by: [address] [address] HDL 49 >=40 mg/dL RYAN Comment: Interpretive [...] last revised on 2017. Testing performed by: [address] [address] LDL, calculated 157(H) <=129 mg/dL RYAN Comment: Interpretive Data Ages < [...] NCEP Expert Panel. Circulation 2004;110:227 3. Eron Boland al. EZ Cardiol. 2020 August 28;5(5):540-548. doi: 10.1001/jamacardio.2020.0013 Current Interpretive Data was last revised on 2023. Testing performed by: [address] [address] Non-HDL Cholesterol 174 mg/dL RYAN Comment: Interpretive Data Ages < [...] last revised on 2017. Testing performed by: [address] [address] Chol/HDL ratio 5 RYAN Comment:Testing performed by : [address] [address] Blood 10/17/2024 9:01 AM CDT 10/17/2024 11:17 AM CDT us Altagracia FIGUEREDO LAB BLOOD ORDERABLES Final Res ult RYAN [address] [facility] [place] [address] * (ABNORMAL) Comprehensive metabolic panel (10/17/2024 9:01 AM CDT) Sodium 139 135 - 145 mmol/L Comment:Testing performed by : [address] [address] Potassium, pl 4.0 3.3 - 4.9 mmol/L RYAN Comment:Testing performed by : [address] [address] Chloride 103 97 - 110 mmol/L RYAN Comment:Testing performed by : [address] [address] CO2 28 22 - 32 mmol/L RYAN Comment:Testing performed by : [address] [address] Anion gap 8 2 - 15 mmol/L RYAN Comment:Testing performed by : [address] [address] BUN 11 6 - 25 mg/dL RYAN Comment:Testing performed by : [address] [address] Creatinine 0.80 0.60 - 1.10 mg/dL RYAN Comment:Testing performed by : [address] [address] Glucose 106 70 - 199 mg/dL RYAN [...] was last revised 2022. Testing performed by: [address] [address] Calcium 9.3 8.5 - 10.3 mg/dL RYAN Comment:Testing performed by : [address] [address] Bilirubin, total 0.6 0.1 - 1.2 mg/dL RYAN Comment:Testing performed by : [address] [address] Protein, pl 7.1 6.5 - 8.5 g/dL RYAN Comment:Testing performed by : [address] [address] Albumin 4.4 3.5 - 5.0 g/dL RYAN Comment:Testing performed by : [address] [address] Alk phos 38(L) 40 - 130 Units/L RYAN Comment:Testing performed by : [address] [address] ALT 18 7 - 45 Units/L RYAN Comment:Testing performed by : [address] [address] AST 14 10 - 45 Units/L RYAN Comment:Testing performed by : [address] [address] Blood 10/17/2024 9:01 AM CDT 10/17/2024 11:17 AM CDT us Altagracia FIGUEREDO LAB BLOOD ORDERABLES Final Res ult RYAN MH [address] [facility] [place] [address] * FL Fluoro Guided Aspiration or Injection [...] Christiana Hensley D.O. PS: PS Report ID: [id number] Reading Location: [id number] Procedure Note Christiana Hensley DO - 09/24/2024 [...] Christiana Hensley D.O. PS: PS Report ID: [id number] Reading Location: [id number] Khalida Winters MD IMG FLUOROSCOPY MANJU HERRERA Final Result * XR Hip Right 2 [...] proximal right femoral shaft. Procedure Note Dwaine Jones, - 09/16/2024 EXAMINATION: XR HIP RIGHT 2 [...] Genotypes (09/03/2023 4:10 PM CDT) CLINICAL INFORMATION: [facility] Comment:None given LMP [facility] [employer] [facility] Comment:08/14/23 Previous Pap [facility] [employer] [facility] Comment:None given Prev. Bx [facility] [employer] [facility] Comment:None given SOURCE: [facility] Comment:Cervix, Endocervix Pap, specimen adequacy [facility] Comment: Satisfactory for evaluation. Endocervical/transformation zone component present. HPV interp [facility] [employer] [facility] Comment: Cytology Results: Negative for intraepithelial lesion or malignancy. COMMENTS [facility] [employer] [facility] Comment: This Pap test has been evaluated with computer assisted technology. Billing And Insurance Coordinator [facility] [employer] [facility] Comment: BES, CT(ASCP) CT screening location: [place] [address] [place] [address] Comment [facility] [employer] [facility] Comment: EXPLANATORY NOTE: The Pap is a [...] High Risk E6/E7 Not Detected NOT DETECTED [facility] Comment: Not Detected High Risk HPV types (16,18,31,33,35,39,45,51,52, 56,58,59,66,68) were not detected. Other HPV types which cause anogenital lesions may be present. The significance of the other types of HPV in malignant processes has not been established. Methodology: Real Time PCR Thin prep 09/03/2023 4:10 PM CDT 09/04/2023 4:21 AM CDT us Altagracia FIGUEREDO LAB CYTOLOGY ORDERABLES Final Result [facility] [address] [facility] [place] [address] [employer] [facility] [address] [place] [address] * DIAGNOSTIC MAMMOGRAM BILATERAL W ROJAS (03/08/2023 2:36 PM FAMILY NURSE PRACTITIONER) Anatomical Region Laterality Modality Breast Bilateral Mammography 03/08/2023 3:12 PM FAMILY NURSE PRACTITIONER Impressions 03/08/2023 3:20 PM FAMILY NURSE PRACTITIONER 1. Benign 2.9 cm simple cyst at [...] PM - Electronically signed by Karri Davidson M.D. MD: Report ID: [id number] Reading Location: [facility] 03/08/2023 3:20 PM FAMILY NURSE PRACTITIONER EXAM DESCRIPTION: US BREAST BILATERAL LIMITED; DIAGNOSTIC [...] masses described in the mammographic findings section. Altagracia FIGUEREDO IMG MAMMO PROCEDURES Final Res ult from Last 3 Months or Most Recently Relevant to Health Maintenance Insurance [facility] Care Teams Tube Repairer Relationship Specialty Start Date End Date Altagracia Velazquez PA [address] [place], [place] [id number] PCP - General Family Medicine 01/20/19 Kevin Pascual MD [address] [place], [place] [phone] Consulting Physician Family Medicine 01/20/19
--- OUTSIDE RECORDS SUMMARY | 2024-11-23 17:10 | XMS_ITS ---
Author Organization [address] Address [address] [address] Care Team Providers Care Vp Talent Management Name Role Phone Altagracia Velazquez Primary Care Provider Kevin Pascual MD Unavailable [phone] Active Problems Problem Noted Date Diagnosed Date [...] Future Comprehensive metabolic panel; Future Thyroid Function [place]; Future Hemoglobin A1c; Future Assessment & Plan (10/15/2024 1:09 PM CDT): Orders: metaxalone (SKELAXIN) 800 mg tablet; Take 1 tablet (800 mg total) by mouth 3 (three) times a day as needed for muscle spasms Lipid panel; Future Comprehensive metabolic panel; Future Thyroid Function [place]; Future Hemoglobin A1c; Future Mild persistent asthma [...] Future Comprehensive metabolic panel; Future Thyroid Function [place]; Future Hemoglobin A1c; Future Assessment & Plan (10/15/2024 1:09 PM CDT): Orders: Lipid panel; Future Comprehensive metabolic panel; Future Thyroid Function [place]; Future Hemoglobin A1c; Future Migraine headache 06/27/2023 [...] Future Comprehensive metabolic panel; Future Thyroid Function [place]; Future Hemoglobin A1c; Future Assessment & Plan (10/15/2024 1:09 PM CDT): PMH: 10/15/24 Last pap: 09/03/23 Last mammogram: 03/08/23 Last dexa: Last colonoscopy/cologuard: Last tdap: 09/03/23 Last Prevnar/pneumovax: Last Shingrix: Last eye exam: 2023 Orders: Lipid panel; Future Comprehensive metabolic panel; Future Thyroid Function [place]; Future Hemoglobin A1c; Future Assessment & Plan [...] Future Comprehensive metabolic panel; Future Thyroid Function [place]; Future Hemoglobin A1c; Future Assessment & Plan (10/15/2024 1:09 PM CDT): Orders: Lipid panel; Future Comprehensive metabolic panel; Future Thyroid Function [place]; Future Hemoglobin A1c; Future Assessment & Plan (02/07/2019 11:39 AM CDT): Educated patient on healthy diet/exercise plan. Exercise 150min-300min per week of moderate intensity. Diet: good, healthy protein (eggs, nuts, peanut butter, chicken, fish, turkey, less pork/beef), lots of vegetables, less carbohydrates and less sugar. Current Treatment and Therapy Plans No current plan information found. Past Treatment and Therapy Plans No past plan information found. Lifetime Dose Tracking * Chemical Lifetime Dose Automatic Entry Manual Entr y Fluoro Time 0.22 minutes 0.22 minutes 0 minutes Air kerma at the reference point (Ka,r) 14.1 mGy 1 4.1 mGy 0 mGy Resolved Problems Problem Noted Date Diagnosed Date Resolved Date Varicose veins of lower extremity 09/11/2024 10/15/2024 Postoperative state 05/27/2024 10/16/19 25 Urethral sphincter deficienc y, intrinsic (ISD) 04/11/2024 10/15/2024 Cystocele, midline 01/18/2024 5 Rectocele 01/18/2024 10/15/2024 Mixed stress and urge urinary incontinence 01/18/2024 10/15/2024 Abdominal colic 06/27/2023 09/03/2023 Abdominal pain 06/27/2023 09/03/2023 Abnormal maternal glucose to lerance, antepartum 06/27/2023 09/03/2023 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 06/27/2023 09/03/2023 Benign gestational thrombocytopenia 06/27/2023 09/03/2023 Calculus of gallbladder 06/27/2023/0 09/2023 Chronic pansinusitis 06/27/2023 024 Congenital malformation 06/27/2023 05/0 09/2023 Female infertility 06/27/2023 4 abnormality affecting management of mother, antepartum condition or complication 06/27/2023 09/03/2023 Increased frequency of urination 06/27/2023 09/03/2023 Metrorrhagia 06/27/2023 09/03/2023 Nonvenomous insect bite of right forearm 06/27/2023 09/03/2023 Overview (06/27/2023): likely hypersensitivity rxn, meds as directed, f/u in am if extends from [place] drawn on arm or if develop fever Oligomenorrhea 06/27/2023 09/03/2023 Overview (06/27/2023): labs wnl, LMP 2 weeks ago, reassurance given continue f/u cycles on Otitis media 06/27/2023 09/03/2023 Pain in wrist [...]
--- OUTSIDE RECORDS SUMMARY | 2024-11-23 17:11 | XMS_ITS | Continuity of Care Document ---
Author Name [facility] Organization [facility] Care Team Providers Care Spring Assembler Supervisor Name Role Phone [facility] Unavailable Unavailable Problems Combined list of problems from Department of Defense and Veterans Affairs facilities. It does not include entries that were removed or entered in error. Problem Status Onset Date Problem Type Date of Resolution Comments Source Unspecified urinary incontinence Active Condition DoD varicose veins of lower extremities Active Condition DoD thrombocytopenia gestational Active Condition DoD Active Condition DoD abdominal pain feels crampy / colicky Active Condition DoD Ed Initial Visit What To Expect In Normal Active Condition DoD otitis media Active Condition DoD Test Positive Inactive Condition DoD abdominal pain in the central upper belly (epigastric) Active Condition DoD - complete Inactive Condition D oD spontaneous Inactive Condition DoD metrorrhagia Active Condition DoD chronic pansinusitis Active Condition DoD rhinosinusitis Inactive Condition DoD nasal passage blockage (stuffiness) Active Condition DoD lumbago Inactive Condition DoD sinusitis Active Condition DoD dizziness Inactive Condition DoD perioral dermatitis Active Condition Do D visit for: exam Active Condition DoD cellulitis Inactive Condition DoD umbilical cord complication - antepartum condition or compli Inactive Condition DoD polyhydramnios - antepartum condition or complication Inactive Condition DoD abn affecting care of mother - antepartum cond or comp Active Condition DoD bronchitis Inactive Condition DoD preg complications: antepartum cond or prior comp delivery Inactive Condition DoD complication: abnormal glucose tolerance, antepartum condition or prior complicated delivery Active Condition DoD congenital malformations Active Condition DoD soft tissue pain in the fingers Active Condition DoD contusion with intact skin surface Inactive Condition DoD umbilical artery absent Active Condition DoD anomaly suspected, not found Inactive Condition DoD nausea Inactive Condition DoD matern obesity complic preg//puerper antepart condition Active Condition DoD vomiting during Inactive Condition DoD constipation Inactive Condition DoD routine checkup - initial Inactive Condition DoD Education Initial Visit Active Condition DoD Supervision Of Normal Inactive Condition DoD with history of infertility Inactive Condition DoD visit for: investigation / testing Active Condition DoD visit for: screening exam malignant neoplasm skin Inactive Condition DoD female infertility Active Condition DoD Patient Counseling: Active Condition Do D Family history of other specified malignant neoplasm Active Condition DoD polycystic ovarian syndrome Active Condition DoD visit for: screening exam malignant neoplasm breast Inactive Condition DoD Cervix Sample Taken For Pap Smear Inactive Condition DoD routine gynecological exam with cervical pap smear Inactive Condition DoD Need For Vaccination Against Influenza Inactive Condition DoD allergic rhinitis Active Condition DoD cholecystitis Inactive Condition DoD cholelithiasis Active Condition DoD urinary frequency increased Active Condition DoD abdominal pain in the right upper belly (RUQ) Active Condition DoD visit for: administrative purpose Active Condition DoD abdominal pain Active Condition DoD joint pain, localized in the wrist Active Condition DoD hemangioma Inactive Condition DoD upper respiratory infection Inactive Condition DoD neck strain Inactive Condition DoD visit for: refer patient without exam or treatment Active Condition DoD Administrative Evaluation Services Active Condition may refer DoD superficial injury nonvenomous insect bite of right forearm Active Condition likely hypersensitivity rxn, meds as directed, f/u in am if extends from [place] drawn on arm or if develop fever DoD rhinitis Active Condition continue z yrtec, likely viral uri, meds as directed, f/u prn for worsening s/s or concerns DoD the time between periods has increased (oligomenorrhea) Active Condition labs wnl, L MP 2 weeks ago, reassurance given continue f/u cycles [facility] DoD visit for: issue repeat prescription for medication Active Condition refilled work s well DoD warts plantar Active Condition LN2 tx today, instructed on use of mediplast w/ duct tape occlusion, f/u prn DoD irritable bowel syndrome Active Condition - does not quit e meet all diagnostic criteria for IBS, but she does carry a history of his diagnosis. Has mixed type symptoms, not predominantly constipation or diarrhea.- patient instructed to keep a food diary- medications for IBS given, will foll DoD obesity Active Condition - this pat ient was hoping to get a referral to Dr. Korey Martinez for assistance with weight loss. She states a friend of hers who also is covered under was sent to him. I could not find him in the book of authorized provider's. Reminded h DoD dermatitis Inactive Condition hand derm atitis, trial of meds as ditrected, f/u prn DoD Oral Contraceptives Inactive Condition refilled, instructed to have anual exam when due, aware she can have [place] or [place], info given DoD allergic rhinitis Active Condition tr ial of [place] vs. zyrtec patient states generic zyrtec not as effective as prior DoD migraine headache Active Condition re filled, works well prn use DoD visit for: services physical Inactive Condition DoD Allergies, Adverse Reactions, Alerts Combined list of allergies from Department of Defense and Veterans Affairs facilities. It does not include entries that were removed or entered in error. Substance Category Reaction Severity Reaction type Status Date Reported Comments Source Penicillins Drug allergy (disorder) Vomiting active 11/14/2005 [facility] Sulfa-Drugs Drug allergy (disorder) Unknown active 11/14/2005 [facility] Immunizations Combined list of available immunizations from the Department of Defense and Veterans Affairs facilities. Immunization Series Date Given Administered By Site Reaction Lot Number CVX Code Drug Cattle Tester Status Comments Source Influenza, seasonal, injectable, preservative free 1 2014 Unknown, Provider [id number] CS [employer] (CSL) complet ed Influenza , seasonal, injectabl e, preservat deb free DoD tetanus toxoid, reduced diphtheria toxoid, and acellular pertu is vaccine, adsorbed 2 2013 Unknown, Provider [id number] [address] [place], [place] [address] (SKB) complet ed tetanus toxoid, reduced diphtheri a toxoid, and acellular pertussis vaccine, adsorbed DoD Influenza, seasonal, injectable, preservative free 3 2013 Unknown, Provider [id number] 140 Novartis Pharmaceutica Bromium Marj. (NOV) complet ed Influenza , seasonal, injectabl e, preservat deb free DoD influenza virus vaccine, split virus (incl. purified surface antigen)-reti red CODE 1 2009 Unknown, Provider [id number] 15 CS[employer]ScootapSenGen[employer] (CSL) complet ed influenza virus vaccine, split virus (incl. purified surface antigen)- retired CODE DoD Novel Influenza-H1N 1-09, live virus for nasal administratio n 1 2008 Unknown, Provider [id number] Med[employer]arche[employer] (MED) complet ed Novel Influenza -L3H4-17, live virus for nasal administr ation DoD measles, mumps and rubella virus vaccine 1 2007 Unknown, Provider [id number] Merck (MSD) complet ed measles, mumps and rubella virus vaccine DoD influenza virus vaccine, split virus (incl. purified surface antigen)-reti red CODE 1 2007 Unknown, Provider [id number] 15 [employer] (CSL) complet ed influenza virus vaccine, split virus (incl. purified surface antigen)- retired CODE DoD hepatitis B vaccine, adult dosage 1 2007 Unknown, Provider [id number] 43 MetrasensKline (SKB) complet ed hepatitis B vaccine, adult dosage DoD tuberculin skin test; purified protein derivative solution, intradermal 1 2007 Unknown, Provider [id number] 96 Sanofi Pasteur (PMC) complet ed tuberculi n skin test; purified protein derivativ e solution, intraderm al DoD tetanus toxoid, reduced diphtheria toxoid, and acellular pertu is vaccine, adsorbed 1 2007 Unknown, Provider [id number] 115 Sanofi Pasteur (PMC) complet ed tetanus toxoid, reduced diphtheri a toxoid, and acellular pertussis vaccine, adsorbed DoD Encounters Combined list of: 1) Encounters from Department of Veterans Affairs facilities going backup to the last 18 months, not all VA inpatient encounters are included; 2) Encounters from the Department of Defense facilities going backup to 280 months. Location Location Details Encounter Type Encounter Number Reason For Visit Attending Provider ADM Date DC Date Status Disposition Source [address] [place] [address]([facility]) OUTPATIENT [id number] I need updated prescri ptions. JANE CORONEL 11/13 Released w/o Limitations [facility] [address] [place] [address]([facility]) OUTPATIENT [id number] med refill ANDI RINALDI 11/14 Released w/o Limitations [address] [place] [address]( [facility]) [address] [place] [address]([facility]) OUTPATIENT [id number] stomach pain BECK RIVERA 05/18 Released w/o Limitations [facility] OUTPATIENT [id number] need plantar wart removed ANDI RINALDI 10/08 Released w/o Limitations [facility] [address] [place] [address]([facility]) TELE CONSULT [id number] ASSOCIATE DIRECTOR FINANCE referra ANDI Rodriguez 01/15 [facility] [address] [place] [address]([facility]) TELE CONSULT [id number] f/u negativ e hcg, no cycle. DEEPIKA MOSLEY 01/17 [facility]) OUTPATIENT [id number] f/u lab work ANDI Esquivel 02/12 Released w/o Limitations [facility]) [facility]) TELE CONSULT [id number] DEEPIKA Singh 05/29 [facility]) OUTPATIENT [id number] insect sting right forearm swellin g/itchi ANDI Banuelos 10/13 Released w/o Limitations [facility]) TELE CONSULT [id number] dep/ref errDEEPIKA Redding 12/01 [facility]( [facility]) TELE CONSULT [id number] ANDI Caldera 01/12 [facility]( [facility]) TELE CONSULT [id number] Refill ANDI GLOVER 02/24 [facility]) TELE CONSULT [id number] JOHNIE Rae 03/04 [facility]) OUTPATIENT [id number] routine care;re fills-n ot seen GERSON Knapp 03/05 Released w/o Limitations [facility]) TELE CONSULT [id number] STEVE Camejo 03/24 [facility]) TELE CONSULT [id number] STEVE Lobato 04/06 [facility]) OUTPATIENT [id number] 21 weeks preg./n rosemary pain on lf, runs down to MARI Carlson 08/21 Released w/o Limitations [facility]) OUTPATIENT [id number] Refills RODNEY ANGELA 10/13 Released w/o Limitations [facility]) OUTPATIENT [id number] red, raised up spot in shoulde r area that bleeds all the time when hit HARD, MARI Mcconnell 12/28 Released w/o Limitations [facility]( [facility]) OUTPATIENT [id number] left wrist pain COREENRODNEY Koffi 04/16 Released w/o Limitations [facility] OUTPATIENT [id number] 6-month fol-up with PCS refills need RODNEY ANGELA 07/30 Released w/o Limitations [facility] [place] [facility]) OUTPATIENT [id number] stomach pain sfor the past few weeks SHAHIDA HUNTER 10/06 Released w/o Limitations [place] [facility] [place] [facility]) TELE CONSULT [id number] ultraso und results LAUREN CARRASCO 11/02 Referred for Appointment [place] [facility] [place] [facility] [id number] stomach pains SHAHIDA HUNTER 11/11 Released w/o Limitations [place] [facility] [place] [facility]) TELE CONSULT [id number] Urine Culture TISHA GERARDO 11/15 Referred for Appointment [place] [facility] [place] [facility]Gene [facility]al Surgery) OUTPATIENT [id number] KEVIN MOYER 11/23 Released w/o Limitations [place] [facility]Ge [facility]eral Surgery ) [facility] [facility]) OUTPATIENT [id number] post f/u KEVIN MOYER 12/28 Released w/o Limitations [place] [facility]Ge neral Surgery ) [place] [facility] OUTPATIENT [id number] PAIN IN LEFT WRIST SHAHIDA HUNTER 02/28 Released w/o Limitations [place] [facility] [place] [facility] TELE CONSULT [id number] Xray results LAUREN CARRASCO Dasha 03/02 Referred for Appointment [place] [facility] [place] [facility] OUTPATIENT [id number] sore throat HILARY HUNTERJIM Dawn 04/06 Released w/o Limitations [place] [facility] [place] [facility] OUTPATIENT [id number] FLU SHOT LORENA PANCHAL 04/06 Released w/o Limitations [place] [facility] [place] [facility] OUTPATIENT [id number] well woman HUNTERSHAHIDA 10/14 Released w/o Limitations [place] [facility] [place] [facility])(E Mail System Administrator Infertili ty) OUTPATIENT [id number] POLYCYS TIC OVARIAN SYNDROM E DIETER WOLFF 10/25 Released w/o Limitations [place] [facility]Gy n Inferti lity) [place] [facility])(E Mail System Administrator Infertili ty) TELE CONSULT [id number] CD1 KATHERINE FALCON 10/27 Referred for Appointment [place] [facility]Gy n Inferti lity) [facility] [facility])(E Mail System Administrator Infertili ty) OUTPATIENT [id number] Medicat ion issue KATHERINE FALCON 10/28 Released w/o Limitations [place] [facility])(Gy n Inferti lity) [place] [facility])(E Mail System Administrator Infertili ty) OUTPATIENT [id number] NEW INFERTI LITY (HAD GRP APPT 28JUN) DIETER WOLFF 11/04 Released w/o Limitations [place] [facility])(Gy n Inferti lity) [place] [facility])(E Mail System Administrator Infertili ty) TELE CONSULT [id number] Plan of care KATHERINE FALCON 12/01 Referred for Appointment [place] [facility]Gy n Inferti lity) [place] [facility])(E Mail System Administrator Infertili ty) TELE CONSULT [id number] Plan of care KATHERINE FALCON 12/02 Referred for Appointment [place] [facility])(Gy n Inferti lity) [place] [facility])(Derm atology) OUTPATIENT [id number] Family history of skin cancer YENI OLSEN 12/05 Released w/o Limitations [place] [facility])(De rmatolo gy) [place] [facility])(E Mail System Administrator Infertili ty) OUTPATIENT [id number] FOLLICL E CHECK DIETER WOLFF 12/07 Released w/o Limitations [place] [facility])(Gy n Inferti lity) [place] [facility])(E Mail System Administrator Infertili ty) TELE CONSULT [id number] KATHERINE [place] 12/07 Referred for Appointment [place] [facility])(Gy n Inferti lity) [facility] [facility])(E Mail System Administrator Infertili ty) OUTPATIENT [id number] FOLLICL E CHECK DIETER WOLFF 12/09 Released w/o Limitations [place] [facility])(Gy n Inferti lity) [place] [facility])(E Mail System Administrator Infertili ty) TELE CONSULT [id number] KATHERINE GUERRA 12/28 Referred for Appointment [place] [facility])(Gy n Inferti lity) [facility] [facility])(E Mail System Administrator Infertili ty) TELE CONSULT [id number] Change appt to KATHERINE Nunn 01/03 Referred for Appointment [place] [facility])(Gy n Inferti lity) [place] [facility])(E Mail System Administrator Infertili ty) OUTPATIENT [id number] FOLLICL E CHECK DIETER WOLFF 01/04 Released w/o Limitations [place] [facility])(Gy n Inferti lity) [place] [facility])(E Mail System Administrator Infertili ty) TELE CONSULT [id number] KATHERINE [place] 01/04 Referred for Appointment [place] [facility])(Gy n Inferti lity) [facility] [facility])(E Mail System Administrator Infertili ty) OUTPATIENT [id number] FOLLICL E CHECK DIETER WOLFF 01/09 Released w/o Limitations [place] [facility])(Gy n Inferti lity) [place] [facility])(E Mail System Administrator Infertili ty) TELE CONSULT [id number] KATHERINE [place] 01/09 Referred for Appointment [place] [facility])(Gy n Inferti lity) [facility] [facility])(E Mail System Administrator Infertili ty) OUTPATIENT [id number] FOLLICL E CHECK DIETER WOLFF 01/12 Released w/o Limitations [place] [facility])(Gy n Inferti lity) [place] [facility])(E Mail System Administrator Infertili ty) TELE CONSULT [id number] KATHERINE [place] 01/12 Referred for Appointment [place] [facility])(Gy n Inferti lity) [facility] [facility])(E Mail System Administrator Infertili ty) TELE CONSULT [id number] HCG results KATHERINE FALCON 01/26 Referred for Appointment [place] [facility])(Gy n Inferti lity) [facility] [facility])(E Mail System Administrator Infertili ty) TELE CONSULT [id number] HCG results KATHERINE FALCON 01/26 Referred for Appointment [place] [facility])(Gy n Inferti lity) [place] [facility])(E Mail System Administrator Infertili ty) TELE CONSULT [id number] lab results KATHERINE FALCON 01/30 Referred for Appointment [place] [facility])(Gy n Inferti lity) [place] [facility])(E Mail System Administrator Infertili ty) TELE CONSULT [id number] HCG KATHERINE FALCON 02/01 Referred for Appointment [place] [facility])(Gy n Inferti lity) [place] [facility])(Obst etrics [facility]) TELE CONSULT [id number] edc 07 October c/o nausea, no emesis MENSAHJAGJIT BONILLALOU 02/10 Released to Self [facility] [place] [facility] [place] [facility])(E Mail System Administrator Infertili ty) OUTPATIENT [id number] CONFIRM ATION U/S JASSI BOSCH 02/16 Released w/o Limitations [place] [facility])(Gy n Inferti lity) [place] [facility]Obst etrics -[facility]) OUTPATIENT [id number] EDC:SEP 7 WEEKS LANI WEISS 02/20 Released w/o Limitations [place] [facility]) [place] [facility])(E Mail System Administrator Infertili ty) OUTPATIENT [id number] CONFIRM ATION U/S DIETER WOLFF 03/01 Released w/o Limitations [place] [facility])(Gy n Inferti lity) [place] [facility]) OUTPATIENT [id number] New OB PE @ 11 weeks with EDC October 09. ERICK CHIANG 03/14 Released w/o Limitations [place] [facility]) [place] [facility]) OUTPATIENT [id number] MARIELOS FULLER 04/18 Released w/o Limitations [place] [facility]) [place] [facility] [place]) TELE CONSULT [id number] LAUREN BENJAMIN 04/18 Referred for Appointment [facility] [facility]) [facility] [facility])(Obst etrics [facility]) TELE CONSULT [id number] edc 02 october c/o burning w/voidi ng, urgency /freque ncy,no f/ch JAGJIT MENSAHLOU 05/16 Released to Self Care [place] [facility]Con) [place] [facility]) TELE CONSULT [id number] Medicat ion MARIELOS FULLER L 05/17 [place] [facility]) [place] [facility]) TELE CONSULT [id number] US follow up 3vc MARIELOS FULLER L 05/22 [facility] [facility]) [facility] [facility] OB Clinic) OUTPATIENT [id number] edc 05jun ERICK CHIANG 05/30 Released w/o Limitations [place] [facility] OB [facility]) [facility] [facility]) TELE CONSULT [id number] 2vc MARIELOS FULLER L 06/06 [facility] [facility]) [place] [facility]) OUTPATIENT [id number] HUSAM GARCIA 06/10 Released w/o Limitations [place] [facility])(Em ergency Room) [place] [facility]) OUTPATIENT [id number] finger swollen red [place] JIMMY WYATT 06/12 Released w/o Limitations [place] [facility]) [place] [facility])(Mate rnal Med) OUTPATIENT [id number] ANOMALY SUSPECT ED, NOT FOUND KEVIN BERRY 06/26 Released w/o Limitations [place] [facility])(Ma ternal Med) [place] [facility])(Obst etrics [facility]) TELE CONSULT [id number] ABNORMA L 1HR GCT ERICK CHIANG 06/27 [place] [facility])(Ob stetric s T-Con) [place] [facility] OB [facility]) OUTPATIENT [id number] edc jun5 VANESSA KING 07/09 Released w/o Limitations [place] [facility] OB [facility]) [place] [facility] OB [facility]) OUTPATIENT [id number] edc andrew АНДРЕЙ ERICKDasha MARIE 07/16 Released w/o Limitations [place] [facility] OB [facility]) [place] [facility] rnal Med) OUTPATIENT [id number] 4 wk f/u u/s visit. KEVIN BERRY 07/25 Released w/o Limitations [place] [facility] [place] [facility] [id number] JORDAN TORRES 08/06 Released w/o Limitations [place] [facility]) [place] [facility]) OUTPAT[facility] [id number] [place] JOSH NOEL 08/08 Released w/o Limitations [place] [facility]) [place] ([facility])([facility]) OUTPATIENT [id number] LARS PAREDES 08/09 Released w/o Limitations [place] ([facility]) [place] ([facility] OUTPATIENT [id number] KEVIN BERRY 08/13 Released w/o Limitations [place] ([facility]) [place] [facility] OUTPATIENT [id number] KEVIN BERRY 08/16 Released w/o Limitations [place] ([facility])([facility]) [place] ([facility])([facility] OUTPATIENT [id number] KEVIN MCMAHON 08/20 Released w/o Limitations [place] ([facility])(Ob stetric s [facility]) [place] ([facility])(Mate [facility] Med) OUTPATIENT [id number] [facility] KEVIN BERRY 08/21 Released w/o Limitations [place] ([facility])(Ma ternal Med) [place] [facility]IENT [id number] KEVIN MCMAHON 08/23 Released w/o Limitations [place] ([facility])([facility]) [place] ([facility])([facility] OUTPATIENT [id number] LARS PAREDES 08/27 Released w/o Limitations [place] ([facility])([facility]) [place] ([facility])([facility] OUTPATIENT [id number] KEVIN MCMAHON 08/30 Released w/o Limitations [place] ([facility])([facility]) [place] ([facility])([facility] OUTPATIENT [id number] OB F/U JOSH NOEL 09/03 Released w/o Limitations [place] ([facility])([facility]) [place] ([facility])([facility] OUTPATIENT [id number] KEVIN BERRY 09/03 Released w/o Limitations [place] ([facility])([facility]) [place] ([facility])([facility] OUTPATIENT [id number] LARS PAREDES 09/06 Released w/o Limitations [place] ([facility])([facility]) [place] ([facility])([facility] OUTPATIENT [id number] KEVIN BERRY 09/10 Released w/o Limitations [place] ([facility])([facility]) [place] ([facility])([facility] OUTPATIENT [id number] LARS PAREDES 09/13 Released w/o Limitations [place] ([facility])([facility]) [place] ([facility])([facility] OUTPATIENT [id number] LARS PAREDES 09/17 Released w/o Limitations [place] ([facility])(Ob [facility]) [place] ([facility])(Mate [facility]nal Med) OUTPATIENT [id number] [facility] F/U KEVIN BERRY 09/20 Released w/o Limitations [place] ([facility])(Ma ternal Med) [place] ([facility])([facility] OUTPATIENT [id number] OB F/U JOSH NOEL 09/20 Released w/o Limitations [place] ([facility])([facility]) [place] ([facility])([facility]) OUTPATIENT [id number] HARVEY BECKHAM 09/24 Released w/o Limitations [place] ([facility])([facility]) [place] ([facility])([facility] OUTPATIENT [id number] OB F/U JORDAN SANDHU 09/25 Released w/o Limitations [place] ([facility])([facility]) [place] ([facility])([facility]) TELE CONSULT [id number] Pt. states you were going to give her an inducti on date JORDAN SANDHU 09/27 [place] ([facility])([facility]) [place] ([facility])([facility] OUTPATIENT [id number] NST HIGH FLUID WEHRUMKEVIN 09/28 Released w/o Limitations [place] ([facility])([facility]) [facility] OTHER THAN [facility] [id number] JORDAN TORRES 10/02 DISCHARGED HOME [facility] [place] ([facility])(Ante - in L&D) OUTPATIENT [id number] prep and induce labor OJRDAN TORRES 10/02 Admitted [place] ([facility])(An te-Part um in L&D) [place] ([facility])(Nancy gency Room) OUTPATIENT [id number] FRANCISCONAN López 10/28 Released w/o Limitations [place] ([facility])(Em ergency Room) [place] ([facility])([address]) OUTPATIENT [id number] post exam DAINA CHIANG 11/13 Released w/o Limitations [place] ([facility])(AM [address]) [place] ([facility])([address]) TELE CONSULT [id number] Notes Entered by: DHARMESH LEMUS 05 Jan 2012 0950 ------- ------- ------- ------- -- Advice Nurse: CAS Helms 01/04 [facility]erred- [facility] [place] [facility] [address] [place] [facility]Nancy gency Room) OUTPATIENT [id number] REMINGTON ROBLERO 01/04 Released w/o Limitations [place] [facility]) [place] ([facility])([address]) OUTPATIENT [id number] ER f/upfrankie (dx. sinus infecti on) not improve d DAINA CHIANG 01/10 Released w/o Limitations [place] [facility] H [address]) [place] ([facility])([address]) TELE CONSULT [id number] Notes Entered by: CHASITY HAINES 09 Apr 2012 0741 ------- ------- ------- ------- -- RX renewal SUSAN MILLARD 04/09 Referred for Appointment [place] ([facility])([address] [place]) [place] ([facility])([address] [place]) OUTPATIENT [id number] low back pain x 3 weeks/ OTC not helping GEORGINA RIBEIRO 05/16 Released w/o Limitations [place] ([facility])([address] [place]) [place] ([facility])([address] [place]) TELE CONSULT [id number] Notes Entered by: Enedina QUINTEROS 30 Jul 2012 1003 ------- ------- ------- ------- -- sinus pain and congest ion HILARY ANG 07/30 [place] ([facility])([address] [place]) [place] ([facility])([address] [place]) OUTPATIENT [id number] sinus pain/ congest ion NEEMA LEUNG 07/31 Released w/o Limitations [place] ([facility])([address] [place]) [place] ([facility])([address]) TELE CONSULT [id number] Notes Entered by: Dasha KINGSTON 29 Aug 2012 1228 ------- ------- ------- ------- -- CT results HILARY ANG 08/29 Referred for Appointment [place] ([facility])([address] [place]) [place] ([facility])([address] [place]) OUTPATIENT [id number] r/u CT results NEEMA LEUNG 09/13 Released w/o Limitations [place] ([facility])([address] [place]) [place] ([facility])([address]) TELE CONSULT [id number] Notes Entered by: Enedina QUINTEROS 17 Sep 2012 1407 ------- ------- ------- ------- -- Patient request ing ENT referra HILARY Roche 09/17 [place] ([facility])(AM H M[facility]A [facility] [place]) [employer]) OUTPATIENT [id number] cough, sore throat and runny nose LATONIA ROSALES 02/06 Released w/o Limitations [employer]([facility]) [employer]([facility] ) TELE CONSULT [id number] Notes Entered by: Koffi DAVILA 11 Feb 2013 1524 ------- ------- ------- ------- -- Pt states her symptom s have not improve LUZ Quintero 02/11 Referred for Appointment [employer]( [employer] [place]) [employer]([facility] [address]) OUTPATIENT [id number] crampin g and irregul ar vaginal bleedin g МАРИЯ DILLON 02/28 Released w/o Limitations [employer]( [employer] bird) [employer]([facility] rgency Services) OUTPATIENT [id number] SALLY VALENTIN 02/28 Released w/o Limitations [employer](E mergenc y Service s) [employer]([facility]) OUTPATIENT [id number] suspect ed complet ed miscarr age JESSICA NELSON 03/03 Released w/o Limitations [employer](O b/[facility]) [employer](Robyn rgency Services) OUTPATIENT [id number] ROBERTA GHOTRA 04/01 Released w/o Limitations [employer](E mergenc y Service s) [employer]([facility]/ [facility]) TELE CONSULT [id number] Notes Entered by: TERRELL BAKER 25 Apr 2013 0840 ------- ------- ------- ------- -- Test result TERRELL BAKER 04/25 [employer](O b/[facility]) [employer] [facility]) TELE CONSULT [id number] Notes Entered by: Enedina ALCAZAR 09 May 2013 1006 ------- ------- ------- ------- -- Medicat ion Renewal BEREKET ANDERSON Darline 05/09 [employer]([facility] b/[facility]) [employer]([facility] [address]) OUTPATIENT [id number] congest ion, swollen glands ear and face МАРИЯ Kuo 05/12 Released w/o Limitations [employer]( [facility] bird) [employer]([facility]/ [facility]) OUTPATIENT [id number] ob intake. ..Unsur e of LMP, neg serum hcg Mar, positiv e test 27Dec NAN VEGA 05/22 Released w/o Limitations [employer]([facility]) [employer]([facility]) OUTPATIENT [id number] 1 TT US/LMP MAR 12? NAN VEGA 06/12 Released w/o Limitations [employer]([facility] b[facility]) [employer]([facility] [address]) OUTPATIENT [id number] 15 weeks ob-chil ls, fever, nausea ALFREDO WHITE 06/23 Released w/o Limitations [employer]( [facility]) [employer]([facility] OUTPATIENT [id number] NOB/EDC DEC 11 OCHOA HURTADO 07/02 Released w/o Limitations [employer](O b/[facility]) [employer] [facility] [address]) OUTPATIENT [id number] coughin g and wheezin g JEANETTE-JUAN SO 07/09 Released w/o Limitations [employer] [facility] [facility]) [employer]([facility]) OUTPATIENT [id number] EDC 10 Dec 2013 JESSICA NELSON 08/01 Released w/o Limitations [employer](O b/[facility]) [employer]([facility] [address]) OUTPATIENT [id number] states pt has cough,s ore throat, congest ion and some wheezin g 2-3 da REMINGTON BHARDWAJ 08/06 Released w/o Limitations [employer](F leonard [facility] bird) [employer](LDR P Clinic) OUTPATIENT [id number] Notes Entered by: IGNACIA FANG [facility] 17 Aug 2013 1104 ------- ------- ------- ------- -- pain on lower r side KATTMARIELOS DASILVA Dasha 08/17 Released w/o Limitations [employer](L DRP Clinic) [employer]([facility]) TELE CONSULT [id number] Notes Entered by: NAYE ESCALERA 20 Aug 2013 0842 ------- ------- ------- ------- -- Back pain NAYE ESCALERA 08/20 [employer]([facility]) [employer]) OUTPATIENT [id number] EDC [id number] . Back pain. RHONA NEGRETE 08/20 Released w/o Limitations [employer]([facility]) [employer]([facility]) OUTPATIENT [id number] EDC [id number] JESSICA MOSHER 09/01 Released w/o Limitations [employer]([facility] b[facility]) [employer]([facility]/ [facility]) TELE CONSULT [id number] Notes Entered by: BRIAN MOSHER 17 Sep 2013 0941 ------- ------- ------- ------- -- Abnorma l 28 wk labs JESSICA MOSHER 09/17 [employer]([facility] b[facility]) [employer]([facility]/ [facility]) TELE CONSULT [id number] Notes Entered by: AFSANEH CORTEZ CIA 01 Oct 2013 0832 ------- ------- ------- ------- -- Network Results -PT 4 RHONA NEGRETE 10/01 [employer](O b/[facility]) [employer]([facility]) OUTPATIENT [id number] EDC DEC 11 OCHOA HURTADO 10/02 Released w/o Limitations [employer]([facility] b[facility]) [employer]([facility]) OUTPATIENT [id number] EDC Nov JESSICA NELSON 10/28 Released w/o Limitations [employer](O b/[facility]) [employer]([facility]) OUTPATIENT [id number] EDC MEDARDO BARKER 11/14 Released w/o Limitations [employer](O b/[facility]) [employer]([facility]) TELE CONSULT [id number] Notes Entered by: AFSANEH CORTEZ CIA 24 Nov 2013 1629 ------- ------- ------- ------- -- Network Results -PT RHONA NEGRETE 11/24 [employer](O b/[facility]) [employer]([facility]/ [facility]) OUTPATIENT [id number] Dec 11 MARIELOS NICHOLSON 11/25 Released w/o Limitations [employer]([facility] b[facility]) [employer]([facility]) OUTPATIENT [id number] edc [id number] OCHOA HURTADO 12/02 Released w/o Limitations [employer](O b/[facility]) [employer] DIRECT TO [facility] FROM OTHER THAN ER OR APU [id number] JESSICA NELSON 12/04 DISCHARGED HOME [employer]([facility]/ [facility]) OUTPATIENT [id number] 6 WK PP CK(DEL- Nov)Pre scribed NOR-QD OCHOA HURTADO 01/20 Released w/o Limitations [employer](O b/[facility]) [employer]([facility] [address]) OUTPATIENT [id number] sore throat REMINGTON BHARDWAJ 03/09 Released w/o Limitations [employer](F am[facility] [address]ennifer) [employer]([facility] [address]) TELE CONSULT [id number] Notes Entered by: MIGUELINA LOW 09 Mar 2014 1021 ------- ------- ------- ------- -- Med refill JUAN MOCTEZUMA 03/09 [employer]([place] [facility] [employer] [place]) [employer]([facility] [address]) TELE CONSULT [id number] Notes Entered by: JEROME OTERO 25 May 2014 1058 ------- ------- ------- ------- -- Control MIGUELINA LOW 05/25 [employer] leonard [facility] bird) [employer]([facility] [address]) OUTPATIENT [id number] control AFSHAN HERNANDEZ 06/03 Released w/o Limitations [employer]([place] [employer] [facility]) [employer]([facility] [address]) TELE CONSULT [id number] Notes Entered by: Erna LUCIO 05 Aug 2014 0719 ------- ------- ------- ------- -- Acute appt request JUAN MOCTEZUMA 08/05 [employer]( [employer] bird) [employer]([facility] [address]) OUTPATIENT [id number] mild low abd. pain REMINGTON BHARDWAJ 08/07 Released w/o Limitations [employer] [facility]) [employer]([facility] [address]) OUTPATIENT [id number] Varicos e vein JUAN MOCTEZUMA 09/01 Released w/o Limitations [employer](F [facility] [facility]) [employer](Vas cular Surg (Peripher al)) OUTPATIENT [id number] THROMBO CYTOPEN IA GESTATI ONAL/va ricosit ies DUANE LUCIO 10/07 Released w/o Limitations [employer](V ascular Surg (Periph eral)) [employer](Car [employer] EKG Interps) OUTPATIENT [id number] bilat vasc duplex/ SOHAM Dominguez 11/18 Released w/o Limitations [employer](C ardio EKG Interps ) [employer]([facility]am [facility] [address]) OUTPATIENT [id number] DIZZY SPELLS FOR TWO DAYS - PT REQUEST AFSHAN PEREZ 12/03 Released w/o Limitations [employer](F am[facility] bird) [employer](Urg ent Care Clinic) OUTPATIENT [id number] cough,c onjesti on JUSTOTRINITY MAY A 01/08 Released w/o Limitations [employer](U rgent Care [facility]) [employer](Vas cular Surg (Peripher al)) OUTPATIENT [id number] THROMBO CYTOPEN IA GESTATI ONAL/va ricosit ies studies complet AFSHAN Grant 01/18 Released w/o Limitations [employer](V ascular Surg (Periph eral)) [employer]([facility] ent Care [facility]) OUTPATIENT [id number] patient states she has slight headach e and discomf ort in ears READ, TANESHA N 02/25 Released w/o Limitations [employer](U rgent Care [facility]) [employer]([facility] ent Care [facility]) OUTPATIENT [id number] itchy yeast infecti on READ, TANESHA N 03/31 Released w/o Limitations [employer](U rgent Care [facility]) [employer](Urg ent Care [facility]) OUTPATIENT [id number] yeast infecti on READ, TANESHA N 06/02 Released w/o Limitations [employer](U rgent Care [facility]) [employer](Urg ent Care [facility]) OUTPATIENT [id number] congest ed cough TISHA GONZALEZ 06/28 Released w/o Limitations [employer](U rgent Care [facility]) [employer](Urg ent Care Clinic) TELE CONSULT [id number] Notes Entered by: Belle PETER 01 Jul 2015 0723 ------- ------- ------- ------- -- Medicat ion Request TANESHA READ N 06/30 [employer]([facility]) [employer]([facility] ent Care [facility]) TELE CONSULT [id number] Notes Entered by: MELL JAVIER 07 Jul 2015 0823 ------- ------- ------- ------- -- ER f/u TANESHA READ N 07/06 [employer]([facility]) [employer]([facility] ent Care Clinic) OUTPATIENT [id number] ER f/u LLL Pneumon ia TANESHA READ N 07/08 Released w/o Limitations [employer]([facility]) [employer] [facility] [employer]([facility] ent Care [facility]) TELE CONSULT [id number] Notes Entered by: Erna LUCIO 13 Jul 2015 1255 ------- ------- ------- ------- -- Acute appt request TANESHA READ N 07/12 [employer]([facility]) [employer] [facility]) OUTPATIENT [id number] severe cough, congest ion x5 weeks МАРИЯ DILLON 07/13 Released w/o Limitations [employer] [facility]) [employer]([facility] ent Care [facility]) TELE CONSULT [id number] Notes Entered by: JEROME OTERO 16 Jul 2015 0656 ------- ------- ------- ------- -- ACUTE issue AVANI THOMAS 07/15 Other Not Elsewhere Classified [employer]([facility]) [employer]([facility] ent Care [facility]) OUTPATIENT [id number] follow up after abx switch TANESHA READ N 07/18 Released w/o Limitations [employer] [facility] [employer]([facility]) [employer] [facility]) OUTPATIENT [id number] minor varicos e veins AFSHAN LOZANO 08/12 Released w/o Limitations [employer] [facility]) [employer](Vas cular Surg (Peripher al)) OUTPATIENT [id number] f/u varicos e vein AFSHAN LOZANO 08/15 Released w/o Limitations [employer](V ascular Surg (Periph eral)) [employer](Vas cular Surg (Peripher al)) OUTPATIENT [id number] varicos e veins AFSHAN LOZANO 09/12 Released w/o Limitations [employer](V ascular Surg (Periph eral)) [place] [address]([facility] Med Nathaniel Team, [employer]) OUTPATIENT [id number] DRY SORES IN MOUTH SHEREEN MOYER 12/15 Released w/o Limitations [facility] [place] [address](F am Med Nathaniel Team, [employer]) [place] [address]([facility] Med Nathaniel Team, [employer]) OUTPATIENT [id number] POS EAR INFECTI ON TAMIKA DEL CID V 01/25 Released w/o Limitations [facility] [place] [address](F am Med Nathaniel Team, [employer]) [place] [address]([facility],RA PATRICIA) OUTPATIENT [id number] COLD/FL U SYMPT JUANITA LYNN 07/21 Released w/o Limitations [facility] [place] [address](F CC Nurse/T ech Clinic, RAFB) [place] [address](E Mail System Administrator ecology [facility]) OUTPATIENT [id number] PAP SMEAR DEBORAHVICENTASURJIT 09/04 Released w/o Limitations [facility] [place] [address](G javier [facility]) [place] [address](E Mail System Administrator ecology [facility]) OUTPATIENT [id number] Unspeci fied urinary inconti nence SHAILA LARA 11/08 Released w/o Limitations [facility] [place] [address](G javier [facility]) [place] [address](Fam Med Sergei Team,RAFB ) OUTPATIENT [id number] SORE THROAT/ RIFT DWAYNE ABRAHAM K 03/27 Released w/o Limitations [facility] [place] [address](F am Med Sergei Team,RA FB) [place] [address]([facility] Med Sergei Team,RAFB ) OUTPATIENT [id number] cold symptom s KIRSTENBRUNA GALARZA F 04/12 Released w/o Limitations [facility] [place] [address](F am Med Sergei Team,RA FB) [place] [address]([facility] Med Sergei Team,RAFB ) OUTPATIENT [id number] EVAL EYE PUSS/SI NUS CONGEST MARLO SIEGEL P 04/18 [facility]ased w/o Limitations [facility] [place] [address](F am Med Sergei Team,RA FB) Procedures Combined list of: 1) Procedures from Department of Veterans Affairs facilities going back up to thelast 18 months, not all VA non-surgical procedures are included; 2) All procedures from the Department of Defense facilities. Procedure Procedure Type Code Date Perfomer Comments Sourc e DESTRUCTION (EG, LASER SURGERY, ELECTROSURGERY, CRYOSURGERY, CHEMOSURGERY, SURGICAL CURETTEMENT), OF BENIGN LESIONS OTHER THAN SKIN TAGS OR CUTANEOUS VASCULAR PROLIFERATIVE LESIONS; UP TO 14 LESIONS 10/09/19 07 DoD ALBUTEROL, INHALATION SOLUTION, COMPOUNDED PRODUCT, ADMINISTERED THROUGH DME, UNIT DOSE, 1 MG 07/03/19 16 DoD LIMITED BILATERAL NONINVASIVE PHYSIOLOGIC STUDIES OF UPPER OR LOWER EXTREMITY ARTERIES (EG,LOWER EXTREM:ANKLE/BRACH,D IST POST TIB & ANT TIB/DORS PEDIS ART PLUS BIDIR,DOP WAVEFORM REC & ANAL, 1-2 LEV) 11/19/19 15 DoD THERAPEUTIC, PROPHYLACTIC, OR DIAGNOSTIC INJECTION (SPECIFY SUBSTANCE OR DRUG); SUBCUTANEOUS OR INTRAMUSCULAR 03/18/20 14 DoD CARE ONLY (SEPARATE PROCEDURE) 01/21/20 14 DoD MEDICAL INDUCTION OF LABOR 12/07/19 14 DoD OTHER MANUALLY ASSISTED DELIVERY 12/07/19 14 DoD EKG (SCALP) 12/07/19 14 DoD PROPHYLACTIC ADMINISTRATION OF VACCINE AGAINST OTHER DISEASES 12/07/19 14 DoD MEASLES, MUMPS AND RUBELLA VIRUS VACCINE (MMR), LIVE, FOR SUBCUTANEOUS USE 12/07/19 14 [facility] ROUTINE OBSTETRIC CARE INCLUDING ANTEPARTUM CARE, VAGINAL DELIVERY (WITH OR WITHOUT EPISIOTOMY, AND/OR FORCEPS) AND CARE 12/05/19 14 [facility] [facility]ARE [facility]ISIT () [EXCLS:PATIENTS WHO ARE SEEN FOR A CONDITION UNREL TO / CARE (EG,AN UP RESPIR INFECT;PATIENTS SEEN FOR CONSULTATION ONLY,NOT FOR CONT CARE)] 12/03/19 14 [facility] SUBSEQ CARE VISIT () [EXCLS:PATIENTS WHO ARE SEEN FOR A CONDITION UNREL TO / CARE (EG,AN UP RESPIR INFECT;PATIENTS SEEN FOR CONSULTATION ONLY,NOT FOR CONT CARE)] 11/26/19 14 [facility] SUBSEQ CARE VISIT () [EXCLS:PATIENTS WHO ARE SEEN FOR A CONDITION UNREL TO / CARE (EG,AN UP RESPIR INFECT;PATIENTS SEEN FOR CONSULTATION ONLY,NOT FOR CONT CARE)] 11/15/19 14 [facility] SUBSEQ CARE VISIT () [EXCLS:PATIENTS WHO ARE SEEN FOR A CONDITION UNREL TO / CARE (EG,AN UP RESPIR INFECT;PATIENTS SEEN FOR CONSULTATION ONLY,NOT FOR CONT CARE)] 10/03/19 14 [facility] SUBSEQ CARE VISIT () [EXCLS:PATIENTS WHO ARE SEEN FOR A CONDITION UNREL TO / CARE (EG,AN UP RESPIR INFECT;PATIENTS SEEN FOR CONSULTATION ONLY,NOT FOR CONT CARE)] 09/02/19 14 [facility] NON-STRESS TEST 08/18/19 14 [facility] UNLISTED PROCEDURE, MATERNITY CARE AND DELIVERY 08/02/19 14 [facility] CHLAMYDIA AND GONORRHEA SCREENINGS DOCUMENTED PERFORMED (HIV) 07/03/19 14 [facility] ULTRASOUND, UTERUS, REAL TIME WITH IMAGE DOCUMENTATION, LIMITED (EG, HEART BEAT, PLACENTAL LOCATION, POSITION AND/OR QUALITATIVE AMNIOTIC FLUID VOLUME), 1 OR MORE FETUSES 06/12/19 14 [facility] PHYS/OTH QUALIFIED HEALTH HELP DESK MANAGER QUALIFIED,EDUCATION, TRAIN,LICENSURE/REGU LATION (WHEN APPLICABLE) EDUC SER RENDERED TO PATS IN A GRP SETTING (EG,,OBESITY ,OR DIABETIC INSTRUCT) 05/22/19 14 [facility] ELECTROCARDIOGRAM, ROUTINE ECG WITH AT LEAST 12 LEADS; WITH INTERPRETATION AND REPORT 03/30/20 13 [facility] INTRODUCTION OF NEEDLE OR INTRACATHETER, VEIN 02/29/20 13 [facility] TELE ASSESS & MGT SRV PROV QUAL NONPHYS HLTH CARE PRO TO EST PAT,PARENT,GUARD NOT ORIG REL ASSESS & MGT SRV PROV W/IN PREV 7 DAYS NOR LEAD ASSESS & MGT SRV/PX W/IN NXT 24 HR/SOON APT;5-10 MIN MED DIS 08/30/19 13 [facility] TELE ASSESS & MGT SRV PROV QUAL NONPHYS HLTH CARE PRO TO EST PAT,PARENT,GUARD NOT ORIG REL ASSESS & MGT SRV PROV W/IN PREV 7 DAYS NOR LEAD ASSESS & MGT SRV/PX W/IN NXT 24 HR/SOON APT;5-10 MIN MED DIS 07/31/19 13 [facility] GLUCOSE; BLOOD, REAGENT STRIP 01/05/20 12 [facility] MEDICAL INDUCTION OF LABOR 10/05/19 12 [facility] REPAIR OF OTHER CURRENT OBSTETRIC LACERATION 10/05/19 12 [facility] POSTOPERATIVE FOLLOW-UP VISIT, NORMALLY INCLUDED IN THE SURGICAL PACKAGE, INDICATE THAT EVALUATION & MANAGEMENT SERVICE WAS PERFORMED DURING A POSTOPERATIVE PERIOD REASON RELATED ORIGINAL PROCEDURE 10/05/19 12 [facility] VAGINAL DELIVERY ONLY (WITH OR WITHOUT EPISIOTOMY AND/OR FORCEPS); 10/04/19 12 [facility] NON-STRESS TEST 09/29/19 12 [facility] SUBSEQ CARE VISIT () [EXCLS:PATIENTS WHO ARE SEEN FOR A CONDITION UNREL TO / CARE (EG,AN UP RESPIR INFECT;PATIENTS SEEN FOR CONSULTATION ONLY,NOT FOR CONT CARE)] 09/26/19 12 [facility] NON-STRESS TEST 09/25/19 12 [facility] SUBSEQ CARE VISIT () [EXCLS:PATIENTS WHO ARE SEEN FOR A CONDITION UNREL TO / CARE (EG,AN UP RESPIR INFECT;PATIENTS SEEN FOR CONSULTATION ONLY,NOT FOR CONT CARE)] 09/21/19 12 [facility] ULTRASOUND, UTERUS, REAL TIME WITH IMAGE DOCUMENTATION, AND MATERNAL EVALUATION PLUS DETAILED ANATOMIC EXAMINATION,TRANSABD OMINAL APPROACH; SINGLE OR FIRST GESTATION 09/21/19 12 [facility] NON-STRESS TEST 09/18/19 12 [facility] NON-STRESS TEST 09/14/19 12 [facility] NON-STRESS TEST 09/11/19 12 [facility] NON-STRESS TEST 09/07/19 12 [facility] NON-STRESS TEST 09/04/19 12 [facility] SUBSEQ CARE VISIT () [EXCLS:PATIENTS WHO ARE SEEN FOR A CONDITION UNREL TO / CARE (EG,AN UP RESPIR INFECT;PATIENTS SEEN FOR CONSULTATION ONLY,NOT FOR CONT CARE)] 09/04/19 [facility] NON-STRESS TEST 08/31/19 [facility] NON-STRESS TEST 08/28/19 [facility] NON-STRESS TEST 08/24/19 12 [facility] ULTRASOUND, UTERUS, REAL TIME WITH IMAGE DOCUMENTATION, AND MATERNAL EVALUATION PLUS DETAILED ANATOMIC EXAMINATION,TRANSABD OMINAL APPROACH; SINGLE OR FIRST GESTATION 08/22/19 [facility] NON-STRESS TEST 08/21/19 [facility] NON-STRESS TEST 08/17/19 [facility] NON-STRESS TEST 08/14/19 12 [facility] SUBSEQ CARE VISIT () [EXCLS:PATIENTS WHO ARE SEEN FOR A CONDITION UNREL TO / CARE (EG,AN UP RESPIR INFECT;PATIENTS SEEN FOR CONSULTATION ONLY,NOT FOR CONT CARE)] 08/10/19 [facility] SUBSEQ CARE VISIT () [EXCLS:PATIENTS WHO ARE SEEN FOR A CONDITION UNREL TO / CARE (EG,AN UP RESPIR INFECT;PATIENTS SEEN FOR CONSULTATION ONLY,NOT FOR CONT CARE)] 08/09/19 [facility] NON-STRESS TEST 08/07/19 [facility] ULTRASOUND, UTERUS, REAL TIME WITH IMAGE DOCUMENTATION, AND MATERNAL EVALUATION PLUS DETAILED ANATOMIC EXAMINATION,TRANSABD OMINAL APPROACH; SINGLE OR FIRST GESTATION 07/26/19 [facility] SUBSEQ CARE VISIT () [EXCLS:PATIENTS WHO ARE SEEN FOR A CONDITION UNREL TO / CARE (EG,AN UP RESPIR INFECT;PATIENTS SEEN FOR CONSULTATION ONLY,NOT FOR CONT CARE)] 07/17/19 [facility] SUBSEQ CARE VISIT () [EXCLS:PATIENTS WHO ARE SEEN FOR A CONDITION UNREL TO / CARE (EG,AN UP RESPIR INFECT;PATIENTS SEEN FOR CONSULTATION ONLY,NOT FOR CONT CARE)] 07/10/19 12 [facility] ULTRASOUND, UTERUS, REAL TIME WITH IMAGE DOCUMENTATION, AND MATERNAL EVALUATION PLUS DETAILED ANATOMIC EXAMINATION,TRANSABD OMINAL APPROACH; SINGLE OR FIRST GESTATION 06/26/19 [facility] SUBSEQ CARE VISIT () [EXCLS:PATIENTS WHO ARE SEEN FOR A CONDITION UNREL TO / CARE (EG,AN UP RESPIR INFECT;PATIENTS SEEN FOR CONSULTATION ONLY,NOT FOR CONT CARE)] 05/30/19 [facility] TELE ASSESS & MGT SRV PROV QUAL NONPHYS HLTH CARE PRO TO EST PAT,PARENT,GUARD NOT ORIG REL ASSESS & MGT SRV PROV W/IN PREV 7 DAYS NOR LEAD ASSESS & MGT SRV/PX W/IN NXT 24 HR/SOON APT;5-10 MIN MED DIS 04/18/20 11 [facility] SUBSEQ CARE VISIT () [EXCLS:PATIENTS WHO ARE SEEN FOR A CONDITION UNREL TO / CARE (EG,AN UP RESPIR INFECT;PATIENTS SEEN FOR CONSULTATION ONLY,NOT FOR CONT CARE)] 04/18/20 11 [facility] INITIAL CARE VISIT (REPORT AT 1ST ENCOUN W HEALTH HELP DESK MANAGER PROVIDING OBSTETRIC CARE. REPORT ALSO DATE OF VISIT &,IN A SEPARATE FIELD,THE DATE OF THE LAST MENSTRUAL PERIOD) 03/14/20 11 [facility] ULTRASOUND, UTERUS, REAL TIME WITH IMAGE DOCUMENTATION,TRANSV AGINAL 03/01/20 11 [facility] ULTRASOUND, UTERUS, REAL TIME WITH IMAGE DOCUMENTATION,TRANSV AGINAL 02/17/20 11 [facility] COLLECTION OF VENOUS BLOOD BY VENIPUNCTURE 01/13/20 11 [facility] COLLECTION OF VENOUS BLOOD BY VENIPUNCTURE 01/10/20 11 [facility] COLLECTION OF VENOUS BLOOD BY VENIPUNCTURE 01/05/20 11 [facility] COLLECTION OF VENOUS BLOOD BY VENIPUNCTURE 12/10/19 11 [facility] COLLECTION OF VENOUS BLOOD BY VENIPUNCTURE 12/08/19 11 [facility] POSTOPERATIVE FOLLOW-UP VISIT, NORMALLY INCLUDED IN THE SURGICAL PACKAGE, INDICATE THAT EVALUATION & MANAGEMENT SERVICE WAS PERFORMED DURING A POSTOPERATIVE PERIOD REASON RELATED ORIGINAL PROCEDURE 10/26/19 11 [facility] SCREENING PAPANICOLAOU SMEAR; OBTAINING, PREPARING AND CONVEYANCE OF CERVICAL OR VAGINAL SMEAR TO LABORATORY 10/15/19 11 [facility] INFLUENZA VIRUS VACCINE, TRIVALENT (IIV3), SPLIT VIRUS, 0.5 ML DOSAGE, FOR INTRAMUSCULAR USE 04/06/20 10 [facility] TELE ASSESS & MGT SRV PROV QUAL NONPS TH CARE PRO TO EST PAT,PARENT,GUARD NOT ORIG REL ASSESS & MGT SRV PROV W/IN PREV 7 DAYS NOR LEAD ASSESS & MGT SRV/PX W/IN NXT 24 HR/SOON APT;5-10 MIN MED DIS 03/02/20 10 [facility] POSTOPERATIVE FOLLOW-UP VISIT, NORMALLY INCLUDED IN THE SURGICAL PACKAGE, INDICATE THAT EVALUATION & MANAGEMENT SERVICE WAS PERFORMED DURING A POSTOPERATIVE PERIOD REASON RELATED ORIGINAL PROCEDURE 12/29/19 10 [facility] UNLISTED SPECIAL SERVICE, PROCEDURE OR REPORT 12/09/19 10 [facility] TELE ASSESS & MGT SRV PROV QUAL NONPHYS HLTH CARE PRO TO EST PAT,PARENT,GUARD NOT ORIG REL ASSESS & MGT SRV PROV W/IN PREV 7 DAYS NOR LEAD ASSESS & MGT SRV/PX W/IN NXT 24 HR/SOON APT;5-10 MIN MED DIS 11/16/19 10 [facility] TELE ASSESS & MGT SRV PROV QUAL NONPHYS HLTH CARE PRO TO EST PAT,PARENT,GUARD NOT ORIG REL ASSESS & MGT SRV PROV W/IN PREV 7 DAYS NOR LEAD ASSESS & MGT SRV/PX W/IN NXT 24 HR/SOON APT;5-10 MIN MED DIS 11/03/19 10 [facility] Pulse Oximetry Pulse Oximetry 94595 04/18/20 17 MARLO JAMES [facility] Patient Counseling Medical Management Individual Patient Patient Counseling Medical Management Individual Patient [id number] 04/18/20 17 MARLO JAMES [facility] Urethral Catheterization (Diag) Post Void Residual ___ ml Urethral Catheterization (Diag) Post Void Residual ___ ml 85530 11/09/19 17 SHAILA ERNST [facility] Screening papanicolaou smear; obtaining, preparing and conveyance of cervical or vaginal smear to laboratory 09/05/19 17 SURJIT GARCIA [facility] Doppler US Of Artery Lower Extremity Bilateral Doppler US Of Artery Lower Extremity Bilateral 24091 11/24/19 15 LINDA RILEY [facility] Obstetrical Services Care Only Obstetrical Services Care Only [id number] 01/21/20 14 OCHOA HURTADO OB Services Antepartum Care Only Subsequent Single Visit OB Services Antepartum Care Only Subsequent Single Visit 0502F 12/03/19 14 OCHOA HURTADO OB Services Antepartum Care Only Subsequent Single Visit OB Services Antepartum Care Only Subsequent Single Visit 0502F 11/26/19 14 MARIELOS NICHOLSON Non-Stre Test (___ 0,2) Non-Stress Test (___ 0,2) 77441 11/25/19 14 MARIELOS NICHOLSON [facility] Antepartum Care Only Subsequent Single Visit OB Services Antepartum Care Only Subsequent Single Visit 0502F 11/15/19 14 MEDARDO BARKER OB Services Antepartum Care Only Subsequent Single Visit OB Services Antepartum Care Only Subsequent Single Visit 0502F 10/03/19 14 OCHOA HURTADO OB Services Antepartum Care Only Subsequent Single Visit OB Services Antepartum Care Only Subsequent Single Visit 0502F 09/02/19 14 JESSICA MOSHER [facility] Obstetrical Services Obstetrical Services 92118 08/02/19 14 JESSICA NELSON [facility] Preventive Med Performance Of Chlamydia And Gonorrhea Screenings Documented Preventive Med Performance Of Chlamydia And Gonorrhea Screenings Documented [id number] 07/03/19 [facility] Screening papanicolaou smear; obtaining, preparing and conveyance of cervical or vaginal smear to laboratory 07/03/19 14 OCHOA HURTADO [facility] OB Services Antepartum Care Only Subsequent Single Visit OB Services Antepartum Care Only Subsequent Single Visit 0502F 07/03/19 14 OCHOA HURTADO [facility] Ultrasound Obstetric Limited Evaluation Ultrasound Obstetric Limited Evaluation 51162 06/12/19 14 NAN COUCH [facility] OB Services Antepartum Care Only Subsequent Single Visit OB Services Antepartum Care Only Subsequent Single Visit 0502F 06/12/19 14 NAN COUCH [facility] Patient Counseling Medical Management [employer] To [employer] Patients Patient Counseling Medical Management [employer] To [employer] Patients [id number] 05/23/19 14 NAN COUCH [facility] Physician Supervised Group Educational Services Physician Supervised Group Educational Services 80109 05/23/19 14 NAN COUCH [facility] Non-Physician Phone Call To Patient/Provider Brief (5-10min) Non-Physician Phone Call To Patient/Provider Brief (5-10min) 34002 09/03/19 13 HILARY ANG [facility] Non-Physician Phone Call To Patient/Provider Brief (5-10min) Non-Physician Phone Call To Patient/Provider Brief (5-10min) 15129 07/31/19 13 HILARY ANG Non-Stre Test (___ 0,2) Non-Stress Test (___ 0,2) 64489 09/29/19 12 CAMILA BENJAMIN [facility] OB Services Antepartum Care Only Subsequent Single Visit OB Services Antepartum Care Only Subsequent Single Visit 0502F 09/26/19 12 JORDAN SANDHU [facility] Non-Stre Test (___ 0,2) Non-Stress Test (___ 0,2) 37043 09/25/19 12 BRUNA LEE Ultrasound Obstetric Limited Evaluation Ultrasound Obstetric Limited Evaluation 31077 09/25/19 12 BRUNA LEE [facility] Transabd Ultrasound W/ Exam Single Or First Gestation Transabd Ultrasound W/ Exam Single Or First Gestation 15231 09/21/19 12 KEVIN BERRY OB Services Antepartum Care Only Subsequent Single Visit OB Services Antepartum Care Only Subsequent Single Visit 0502F 09/21/19 12 FELTADEEL MS, JOSH E [facility] Non-Stre Test (___ 0,2) Non-Stress Test (___ 0,2) 18442 09/18/19 12 BRUNA LEE Ultrasound Obstetric Limited Evaluation Ultrasound Obstetric Limited Evaluation 73326 09/18/19 12 BRUNA LEE [facility] Non-Stre Test (___ 0,2) Non-Stress Test (___ 0,2) 08397 09/14/19 12 BRUNA LEE Non-Stre Test (___ 0,2) Non-Stress Test (___ 0,2) 21173 09/11/19 12 BRUNA LEE Ultrasound Obstetric Limited Evaluation Ultrasound Obstetric Limited Evaluation 80540 09/11/19 12 BRUNA LEE [facility] Non-Stre Test (___ 0,2) Non-Stress Test (___ 0,2) 13864 09/07/19 12 OLLIE AL Non-Stre Test (___ 0,2) Non-Stress Test (___ 0,2) 94770 09/04/19 12 BRUNA LEE Ultrasound Obstetric Limited Evaluation Ultrasound Obstetric Limited Evaluation 21744 09/04/19 12 BRUNA LEE OB Services Antepartum Care Only Subsequent Single Visit OB Services Antepartum Care Only Subsequent Single Visit 0502F 09/04/19 12 LI MS, JOSH E Saul Non-Stre Test (___ 0,2) Non-Stress Test (___ 0,2) 94859 08/31/19 12 BRUNA LEE Non-Stre Test (___ 0,2) Non-Stress Test (___ 0,2) 75944 08/28/19 12 BRUNA LEE Ultrasound Obstetric Limited Evaluation Ultrasound Obstetric Limited Evaluation 41694 08/28/19 12 BRUNA LEE DoD Non-Stre Test (___ 0,2) Non-Stress Test (___ 0,2) 47082 08/24/19 12 BRUNA LEE Transabd Ultrasound W/ Exam Single Or First Gestation Transabd Ultrasound W/ Exam Single Or First Gestation 19045 08/22/19 12 KEVIN BERRY Non-Stre Test (___ 0,2) Non-Stress Test (___ 0,2) 48900 08/21/19 12 BRUNA LEE Ultrasound Obstetric Limited Evaluation Ultrasound Obstetric Limited Evaluation 73106 08/21/19 12 BRUNA LEE Non-Stre Test (___ 0,2) Non-Stress Test (___ 0,2) 46390 08/17/19 12 BRUNA LEE Non-Stre Test (___ 0,2) Non-Stress Test (___ 0,2) 08/14/19 12 BRUNA LEE Ultrasound Obstetric Limited Evaluation Ultrasound Obstetric Limited Evaluation 21259 08/14/19 12 BRUNA LEE Non-Stre Test (___ 0,2) Non-Stress Test (___ 0,2) 74059 08/10/19 12 BRUNA LEE OB Services Antepartum Care Only Subsequent Single Visit OB Services Antepartum Care Only Subsequent Single Visit 0502F 08/09/19 12 JOSH JEFFERSON MS Non-Stre Test (___ 0,2) Non-Stress Test (___ 0,2) 07358 08/07/19 12 BRUNA LEE Ultrasound Obstetric Limited Evaluation Ultrasound Obstetric Limited Evaluation 36193 08/07/19 12 BRUNA LEEI [facility] Transabd Ultrasound W/ Exam Single Or First Gestation Transabd Ultrasound W/ Exam Single Or First Gestation 10915 07/27/19 12 KEVIN BERRY MAX [facility] OB Services Antepartum Care Only Subsequent Single Visit OB Services Antepartum Care Only Subsequent Single Visit 0502F 07/17/19 12 ERICK CHIANG [facility] OB Services Antepartum Care Only Subsequent Single Visit OB Services Antepartum Care Only Subsequent Single Visit 0502F 07/11/19 12 VANESSA KING [facility] Transabd Ultrasound W/ Exam Single Or First Gestation Transabd Ultrasound W/ Exam Single Or First Gestation 40980 06/26/19 12 KEVIN BERRY [facility] OB Services Antepartum Care Only Subsequent Single Visit OB Services Antepartum Care Only Subsequent Single Visit 0502F 05/30/19 12 АНДРЕЙXUANDasha MARIE [facility] Non-Physician Phone Call To Patient/Provider Brief (5-10min) Non-Physician Phone Call To Patient/Provider Brief (5-10min) 61854 04/19/20 11 LAUREN CARRASCO 5min [facility] OB Services Antepartum Care Only Subsequent Single Visit OB Services Antepartum Care Only Subsequent Single Visit 0502F 04/18/20 11 MARIELOS FULLER [facility] Ultrasound Obstetric Limited Evaluation Ultrasound Obstetric Limited Evaluation 51926 03/14/20 11 АНДРЕЙERICK CYNTHIA [facility] OB Services Antepartum Care Only First Visit, With Report OB Services Antepartum Care Only First Visit, With Report 0500F 03/14/20 11 АНДРЕЙ ERICK CYNTHIA [facility] Ultrasound [place] [address] 03/01/20 11 DIETER WOLFF Ultrasound [place] [address] 02/18/20 11 JASSI BOSCH [facility] Venipuncture Venipuncture 06938 01/13/20 11 KATHERINE FALCON [facility] Ultrasound Trans-Vaginal Ultrasound Trans-Vaginal 71776 01/13/20 11 KATHERINE FALCON Venipuncture Venipuncture 30638 01/11/20 11 KATHERINE FALCON Ultrasound Trans-Vaginal Ultrasound Trans-Vaginal 93783 01/11/20 11 KATHERINE FALCON Venipuncture Venipuncture 82602 01/05/20 11 DIETER WOLFF Ultrasound Trans-Vaginal Ultrasound Trans-Vaginal 81483 01/05/20 11 DIETER WOLFF [facility] Ultrasound Trans-Vaginal Ultrasound Trans-Vaginal 97325 12/10/19 11 DIETER WOLFF [facility] Venipuncture Venipuncture 82169 12/10/19 11 DIETER WOLFF [facility] Venipuncture Venipuncture 35210 12/08/19 11 DIETER WOLFF [facility] Ultrasound Trans-Vaginal Ultrasound Trans-Vaginal 06960 12/08/19 11 DIETER WOLFF [facility] Screening papanicolaou smear; obtaining, preparing and conveyance of cervical or vaginal smear to laboratory 10/15/19 11 SHAHIDA HUNTER [facility] Immunization Administration By Injection, One Vaccine Immunization Administration By Injection, One Vaccine 69697 04/06/20 10 LORENA PANCHAL [facility] Influenza Split Virus Vaccine 0.5mL Dosage Intramuscular 04/06/20 10 LORENA PANCHAL [facility] Non-Physician Phone Call To Patient/Provider Brief (5-10min) Non-Physician Phone Call To Patient/Provider Brief (5-10min) 47367 03/02/20 10 LAUREN CARRASCO [facility] Non-Physician Phone Call To Patient/Provider Brief (5-10min) Non-Physician Phone Call To Patient/Provider Brief (5-10min) 55668 11/16/19 10 TISHA GERARDO [facility] Non-Physician Phone Call To Patient/Provider Brief (5-10min) Non-Physician Phone Call To Patient/Provider Brief (5-10min) 58975 11/05/19 10 LAUREN CARRASCO Spoke to paitent for 5 minutes. [facility] Destruction Of Benign Lesion By Cryosurgery 10/09/19 07 ANDI RINALDI [facility] Social History Combined list of available smoking, tobacco, and other social history from Department of Defense and Veterans Affairs facilities. Social History Type Response Date Comment Sour e This section is an empty social history section. [facility]
--- OUTSIDE RECORDS SUMMARY | 2024-11-23 17:11 | XMS_ITS | Patient Health Record ---
Author Organization [facility] [place] ([address]) Address [address] [place] [address] Care Team Providers Care Family Member Caretaker Name Role Phone Altagracia Velazquez Primary Care Provider Lizeth Chen Unavailable [phone] Jayshree Agustin Unavailable Unavailable Vineet Canseco Unavailable [phone] Olimpia Gardiner Unavailable [phone] Allergies Allergen (clinical drug ingredient) Drug/Non Drug Allergy documented on EMR Reaction Allergy Type Onset Date Status Sulfamethoxazole rash Drug Allergy Active Reason For Referral Referring Provider First Name Altagracia Referring Provider Last Name Caroline Referred Organization [facility] Referred Provider Lizeth Travis Referred Address [address] [place] [id number], Referral Priority Routine Medications Medication SIG (Take, Route, Frequency, Duration) Notes Start Date End Date Status CETIRIZINE 10 mg 1 tab(s) orally Qday ; Duration: 90 days Active MONTELUKAST 10 mg 1 tab(s) orally at night; Duration: 90 days Not-Sandro ing CLOBETASOL (EQV-TEMOVATE E) 0.05% 1 juan applied topically 2 times a day; Duration: 7 day(s) Active PEPCID 40 mg 1 tab(s) orally once per day; Duration: 90 days Not-Takin g CETIRIZINE 10 mg 1 tab(s) orally Qday ; Duration: 90 days Not-Taking AZELASTINE NASAL 137 mcg/inh 2 spray(s) intranasally 2 times a day; Duration: 30 days Active Xolair 150 MG 300 mg subcutaneousl y every 4 weeks; Duration: 30 day(s) Active XYZAL 5 mg 1 tablet PO daily; Duration: 30 Unknown FLUTICASONE NASAL 50 mcg/inh 1 spray(s) in each nostril twice a day; Duration: 30 days Active EpiPen 2-Francis 0.3 MG/0.3ML as directed intramuscularly once; Duration: 30 days Active XYZAL 5 mg 1 tablet PO daily; Duration: 30 Unknown LEVALBUTEROL TARTRATE HFA 45 mcg/inh 2 puff(s) inhaled every 4 hours Active Cetirizine HCl 10 MG 1 tab(s) orally Qda y; Duration: 90 days Active predniSONE 20 MG 2 tab(s) orally once a day; Duration: 5 days Not-Taking XOLAIR 150 mg 150 mg subcutaneousl y every 4 weeks; Duration: 30 days Active Pepcid 40 mg 1 tab(s) orally once per day; Duration: 90 days Active Azelastine HCl 137 MCG/SPRAY 2 spray(s) intranasally 2 times a day; Duration: 30 days Not-Taking Fluticasone Propionate 50 MCG/ACT 1 spray(s) in each nostril twice a day; Duration: 30 days Not-Taking MONTELUKAST 10 mg 1 tab(s) orally at night; Duration: 90 days Active AZELASTINE NASAL 137 mcg/inh 2 spray(s) intranasally 2 times a day; Duration: 30 days Not-Taking PEPCID 40 mg 1 tab(s) orally once per day; Duration: 90 days Active FLUTICASONE NASAL 50 mcg/inh 1 spray(s) in each nostril twice a day; Duration: 30 days Not-Taking Benadryl Allergy 25 MG 1 cap(s) orally every 6 hours Uses prn Unknown Xyzal Allergy 24HR 5 MG 1 tablet PO daily; Duration: 30 Unknown BENADRYL 25 mg 1 cap(s) orally ever y 6 hours Uses prn Unknown VANICREAM MOISTURIZING CREAM N/A as necessary Apply to external surfaces as often as needed to face, hands, feet or body For daily use by the entire family; Duration: 30 day(s) Active EPIPEN 2-FRANCIS 0.3 mg as directed intramuscularly once; Duration: 30 days Active VANICREAM CLEANSING BAR - 1 juan applied topically 4 times a day Active Immunizations Vaccine Route Administration Date Status Comme nts Flucelvax Unknown 02/28/2022 Administered Social History Tobacco Use: Social History Observation Description Date Details (start date - stop date) Former Smoker NA - NA Sex Assigned At : Social History Observation Description Sex Assigned At Female Tobacco Control (Standard) Question Answer Notes Tobacco use: Former smoker AUDIT-C (Standard) Question Answer Notes Did you have a drink containing alcohol in the p ast year? No Points 0 Interpretation Negative Problems Problem Type SNOMED Code ICD Code Onset Dates Problem Status W/U Status Risk Notes Problem Chronic allergic conjunctivitis (24568017) Other chronic allergic conjunctivitis (H10.45) Active confirmed Problem Allergic rhinitis caused by pollen (disorder) (45056698) Allergic rhinitis due to pollen (J30.1) Active confirmed Problem Allergic rhinitis (85643800) Other allergic rhinitis (J30.89) Active confirmed Problem Dyshidrosis [pompholyx] (L30.1) Active confirmed Problem Allergic rhinitis caused by animal hair and dander (170053969362133) Allergic rhinitis due to animal (cat) (dog) hair and dander (J30.81) Active confirmed Problem Dermatographic urticaria (1087137) 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 confirmed Problem Idiopathic urticaria (38751711) Idiopathic urticaria (L50.1) Active confirmed Problem Wheezing (79479324) Wheezing (R06.2) Active confirmed Problem Swelling of head (210256671) Localized swelling, mass and lump, head (R22.0) Active confirmed Problem Urticaria (721154998) Other Urticaria (L50.8) Active confirmed Vital Signs Respiratory Rate 18 /min 11/05/2024 Oximetry 98 % 11/05/2024 Blood pressure diastolic 79 mm Hg 11/05/2024 Height 67.5 in 11/05/2024 Blood pressure systolic 124 mm Hg 11/05/2024 Weight 236.2 lbs 11/05/2024 BMI 36.44 kg/m2 11/05/2024 Encounters Encounter Location Date Provider Diagnosis [place] [address] 12/19/2023 Vineet Canseco Other Urticaria L50. 8 ANGELICA [facility] [address] [place] [address] [place] [address] 01/16/2024 Vineet Win Other Urticaria L50. 8 [facility] [address] [place] [address] 02/13/2024 Olimpia Hagnaleonie Idiopathic urticaria L50.1 ; Dermatographic urticaria L50.3 ; Localized swelling, mass and lump, head R22.0 ; Wheezing R06.2 ; Dyshidrosis [pompholyx] L30.1 ; Allergic rhinitis due to pollen J30.1 ; Other allergic rhinitis J30.89 ; Adverse effect of other vaccines and biological substances, initial encounter T50.Z95A and Elevated blood-pressure reading, without diagnosis of hypertension R03.0 [facility] [place] [address] [place] [address] 03/12/2024 Vineet Win Other Urticaria L50. 8 [facility] [place] [address] [place] [address] 04/09/2024 Vineet Win Other Urticaria L50. 8 [facility] [place] [address] [place] [address] 05/14/2024 Vineet Win Other Urticaria L50. 8 [facility] [place] [address] [place] [address] 06/03/2024 Lizeth Young Idiopathic urticaria L50.1 ; Dermatographic urticaria L50.3 ; Localized swelling, mass and lump, head R22.0 ; Wheezing R06.2 ; Dyshidrosis [pompholyx] L30.1 ; Allergic rhinitis due to pollen J30.1 ; Other allergic rhinitis J30.89 ; Adverse effect of other vaccines and biological substances, initial encounter T50.Z95A and Elevated blood-pressure reading, without diagnosis of hypertension R03.0 [facility] [place] [address] [place] [address] 06/11/2024 Olimpia Maximilianonaleonie Idiopathic urticaria L50.1 ; Dermatographic urticaria L50.3 ; Localized swelling, mass and lump, head R22.0 ; Wheezing R06.2 ; Dyshidrosis [pompholyx] L30.1 ; Allergic rhinitis due to pollen J30.1 ; Other allergic rhinitis J30.89 ; Adverse effect of other vaccines and biological substances, initial encounter T50.Z95A and Elevated blood-pressure reading, without diagnosis of hypertension R03.0 [facility] [place] [address] [place] [address] 06/25/2024 Olimpia Landinleonie Idiopathic urticaria L50.1 ; Allergic rhinitis due to pollen J30.1 ; Dermatographic urticaria L50.3 ; Localized swelling, mass and lump, head R22.0 ; Wheezing R06.2 ; Dyshidrosis [pompholyx] L30.1 ; Other allergic rhinitis J30.89 and Adverse effect of other vaccines and biological substances, subsequent encounter T50.Z95D [facility] [place] [address] [place] [address] 07/09/2024 Vineet Win Other Urticaria L50. 8 [facility] [place] [address] [place] [address] 08/06/2024 Vineet Win Other Urticaria L50. 8 [facility] [place] [address] [place] [address] 09/03/2024 Vineet Win Other Urticaria L50. 8 [facility] [place] [address] [place] [address] 10/01/2024 Vineet Win Other Urticaria L50. 8 [facility] [place] [address] [place] [address] 11/05/2024 Vineet Win Other Urticaria L50. 8 ; Idiopathic urticaria L50.1 ; Dermatographic urticaria L50.3 ; Localized swelling, mass and lump, head R22.0 ; Wheezing R06.2 ; Dyshidrosis [pompholyx] L30.1 ; Allergic rhinitis due to pollen J30.1 ; Other allergic rhinitis J30.89 ; Adverse effect of other vaccines and biological substances, initial encounter T50.Z95A and Elevated blood-pressure reading, without diagnosis of hypertension R03.0 [facility] [place] [address] [place] [address] 08/07/2024 Lizeth Travis [facility] [place] [address] [place] [address] 06/17/2024 Lizeth Travis [facility] [address] [place] [address] 11/03/2024 Lizeth Thaddeus Assessments Encounter Date Diagnosis (ICD Code) Assessment Notes Treatment Notes Treatment Clinical Notes Section Notes 12/19/2023 Other Urticaria (ICD-10 - L50.8) 01/16/2024 Other Urticaria (ICD-10 - L50.8) 02/13/2024 Dermatographic urticaria (ICD-10 - L50.3) 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 Started occurring daily in November 2021, > 6 weeks with episodes of swelling. She has continued doing very well on Xolair. No interval hives reported in the last several months. - Recommend continuing Xolair Q4 weeks given her response. Continue daily Zyrtec. She is no longer taking Singulair or Pepcid without increased in pruritus or recurrence of hives. - At initial visit we checked additional labs for mast cell, thyroid, and autoimmune conditions. Her labs showed low level TPO ab and +RF. JENAE negative. Recommend f/u with PCP. Would check T3/T4 if not done the past year. Discussed the unknown significance of these findings. Labs negative for mast cell. - Discussed avoiding NSAIDs such as ibuprofen, as it directly degranulates mast cells. - Again reviewed risks, benefits, alternatives to Xolair. She was monitored for 30 minutes w/o adverse reaction. Has AIE which should be carried at all times. Dosing was tolerated w/o adverse reaction. - Steroids provided previously to keep on hand - call prior to use. - Return in 4 weeks for Xolair dosing - Continue 300 mg Q4 weeks. 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 ImmunoCaps showed dust mite, grass, and tree allergy. - Continue medication regimen as above for better control of symptoms. - Recently returned for skin testing, however test was blunted, showed only phoma, goldenrod, and sari grass. Kathy returned today to reattempt skin testing as XOLAIR has been reduced, however histamine control again blunted. Plan to return once of XOLAIR 06/25/2024 Idiopathic urticaria (ICD-10 - L50.1) Kathy has [...] pruritus or recurrence of hives. - Kathy is now titrating down XOLAIR as she has not had hives and has been on therapy for two years. She is not due for dosing today. - Return as scheduled for XOLAIR and further evaluation and management 07/09/2024 Other Urticaria (ICD-10 - L50.8) 08/06/2024 Other Urticaria (ICD-10 - L50.8) 09/03/2024 Other Urticaria (ICD-10 - L50.8) 10/01/2024 Other Urticaria (ICD-10 - L50.8) 11/05/2024 Other Urticaria (ICD-10 - L50.8) 11/05/2024 Idiopathic urticaria (ICD-10 - L50.1) Kathy has a history of chronic hives occurring in college. Started occurring daily in November 2021, > 6 weeks with episodes of swelling. She has continued doing very well on Xolair. No interval hives reported in the last several months. - Recommend continuing Xolair 150 mg Q4 weeks given her response. Continue daily Zyrtec. She continues to hold Singulair or Pepcid without increased in pruritus or recurrence of hives. - Return in 4 weeks for XOLAIR and further evaluation and management - has now been hive-free for 12 months (last flare with Tdap in 10/2023). Consider trial off Xolair to see if symptoms return. 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 - Carrying AIE at all times 06/03/2024 Localized swelling, mass and lump, head (ICD-10 - R22.0) Episodic swelling of eyelids and lips in the setting of hives - Continues doing well on XOLAIR. - Carrying AIE at all times 02/13/2024 Localized swelling, mass and lump, head (ICD-10 - R22.0) Episodic swelling of eyelids and lips in the setting of hives - Continues doing well on XOLAIR. - Carrying AIE at all times 02/13/2024 Wheezing (ICD-10 - R06.2) Seasonal wheezing 2-3 x a year with historical PNA and bronchitis - Given history, spirometry was obtained in the past, which was normal. - Has KENDRA to have on hand, if she has use >2-3x a week recommend repeat spirometry and consider controller. - Continue to monitor for increased KENDRA use, no recent issues 06/03/2024 Wheezing (ICD-10 - R06.2) Seasonal wheezing 2-3 x a year with historical PNA and bronchitis - Given history, spirometry was obtained in the past, which was normal. - Has KENDRA to have on hand, if she has use >2-3x a week recommend repeat spirometry and consider controller. - Continue to monitor for increased KENDRA use, no recent issues 06/11/2024 Wheezing (ICD-10 - R06.2) Seasonal wheezing 2-3 x a year with historical PNA and bronchitis - Given history, spirometry was obtained in the past, which was normal. - Has KENDRA to have on hand, if she has use >2-3x a week recommend repeat spirometry and consider controller. - Continue to monitor for increased KENDRA use, no recent issues 06/25/2024 Localized swelling, mass and lump, head (ICD-10 - R22.0) Episodic swelling of eyelids and lips in the setting of hives - Continues doing well on XOLAIR. 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 - Carrying AIE at all times 06/25/2024 Wheezing (ICD-10 - R06.2) Seasonal wheezing 2-3 x a year with historical PNA and bronchitis - Given history, spirometry was obtained in the past, which was normal. - Has KENDRA to have on hand, if she has use >2-3x a week recommend repeat spirometry and consider controller. - Continue to monitor for increased KENDRA use, no recent issues 06/11/2024 Dyshidrosis [pompholyx] (ICD-10 - L30.1) Her prior description of rash is c/w dyshidrotic eczema. Skin clear today on PE. - Discussed using unscented dye free products. Consider patch testing if symptoms return. - Continue Vanicream moisturizer and soap - Used clobetasol with topical emollient BID x 3-7 days with significant improvement 06/03/2024 Dyshidrosis [pompholyx] (ICD-10 - L30.1) Her prior description of rash is c/w dyshidrotic eczema. Skin clear today on PE. - Discussed using unscented dye free products. Consider patch testing if symptoms return. - Continue Vanicream moisturizer and soap - Used clobetasol with topical emollient BID x 3-7 days with significant improvement 02/13/2024 Dyshidrosis [pompholyx] (ICD-10 - L30.1) Her prior description of rash is c/w dyshidrotic eczema. Skin clear today on PE. - Discussed using unscented dye free products. Consider patch testing if symptoms return. - Continue Vanicream moisturizer and soap - Used clobetasol with topical emollient BID x 3-7 days with significant improvement 02/13/2024 Allergic rhinitis due to pollen (ICD-10 - J30.1) Skin testing unable to be performed. ImmunoCaps showed dust mite, grass, and tree allergy. - Continue medication regimen as above for better control of symptoms. - Now that hives are better controlled consider returning this Winter to undergo skin testing to aeroallergens, Kathy is interested, now only on daily Zyrtec 06/03/2024 Allergic rhinitis due to pollen (ICD-10 - J30.1) Skin testing unable to be performed. ImmunoCaps showed dust mite, grass, and tree allergy. - Continue medication regimen as above for better control of symptoms. - Now that hives are better controlled consider returning this Winter to undergo skin testing to aeroallergens, Kathy is interested, now only on daily Zyrtec -Skin testing today blunted, showed only phoma, goldenrod, and sari grass. Recommend retesting once off Xolair in the next year 06/11/2024 Allergic rhinitis due to pollen (ICD-10 - J30.1) Skin testing unable to be performed. ImmunoCaps showed dust mite, grass, and tree allergy. - Continue medication regimen as above for better control of symptoms. - Recently returned for skin testing, however test was blunted, showed only phoma, goldenrod, and sari grass. - Recommend retesting once off Xolair in the next year 06/25/2024 Dyshidrosis [pompholyx] (ICD-10 - L30.1) Her prior description of rash is c/w dyshidrotic eczema. Skin clear today on PE. - Discussed using unscented dye free products. Consider patch testing if symptoms return. - Continue Vanicream moisturizer and soap - Used clobetasol with topical emollient BID x 3-7 days with significant improvement 11/05/2024 Wheezing (ICD-10 - R06.2) Seasonal wheezing 2-3 x a year with historical PNA and bronchitis - Given history, spirometry was obtained in the past, which was normal. - Has KENDRA to have on hand, if she has use >2-3x a week recommend repeat spirometry and consider controller. - Continue to monitor for increased KENDRA use, no recent issues 11/05/2024 Dyshidrosis [pompholyx] (ICD-10 - L30.1) Her prior description of rash is c/w dyshidrotic eczema. Skin clear today on PE. - Discussed using unscented dye free products. Consider patch testing if symptoms return. - Continue Vanicream moisturizer and soap - Used clobetasol with topical emollient BID x 3-7 days with significant improvement 06/25/2024 Other allergic rhinitis (ICD-10 - J30.89) As above 06/11/2024 Other allergic rhinitis (ICD-10 - J30.89) As above 06/03/2024 Other allergic rhinitis (ICD-10 - J30.89) As above 02/13/2024 Other allergic rhinitis (ICD-10 - J30.89) As above 02/13/2024 Adverse effect of other vaccines and biological substances, initial encounter (ICD-10 - T50.Z95A) Kathy reports that in October she received a TDAP booster. The next day she developed urticaria on her face and hairline. - Timeline described is not consistent with IgE-mediated hypersensitivity reaction to TDAP vaccine. Can consider a dose challenge if desired by Kathy in the future 06/03/2024 Adverse effect of other vaccines and biological substances, initial encounter (ICD-10 - T50.Z95A) Kathy reports that in October she received a TDAP booster. The next day she developed urticaria on her face and hairline. - Timeline described is not consistent with IgE-mediated hypersensitivity reaction to TDAP vaccine. Can consider a dose challenge if desired by Kathy in the future 06/11/2024 Adverse effect of other vaccines and biological substances, initial encounter (ICD-10 - T50.Z95A) Kathy reports that in October she received a TDAP booster. The next day she developed urticaria on her face and hairline. - Timeline described is not consistent with IgE-mediated hypersensitivity reaction to TDAP vaccine. Can consider a dose challenge if desired by Kathy in the future 06/25/2024 Adverse effect of other vaccines and biological substances, subsequent encounter (ICD-10 - T50.Z95D) Kathy reports that in October she received a TDAP booster. The next day she developed urticaria on her face and hairline. - Timeline described is not consistent with IgE-mediated hypersensitivity reaction to TDAP vaccine. Can consider a dose challenge if desired by Kathy in the future 11/05/2024 Allergic rhinitis due to pollen (ICD-10 - J30.1) Skin testing unable to be performed. ImmunoCaps showed dust mite, mold, grass, and tree allergy. - Continue medication regimen as above for better control of symptoms. - Recently returned for skin testing, however test was blunted, showed only phoma, goldenrod, and sari grass. - Recommend retesting once off Xolair in the next year or can start SCIT using mixes in consideration with her current ImmunoCaps given persistent symptoms. 11/05/2024 Other allergic rhinitis (ICD-10 - J30.89) As above 06/11/2024 Elevated blood-pressure reading, without diagnosis of hypertension (ICD-10 - R03.0) BP elevated today without symptoms of urgency or emergency. Continue serial checks and follow-up with PCP 06/03/2024 Elevated blood-pressure reading, without diagnosis of hypertension (ICD-10 - R03.0) BP elevated today without symptoms of urgency or emergency. Continue serial checks and follow-up with PCP 02/13/2024 Elevated blood-pressure reading, without diagnosis of hypertension (ICD-10 - R03.0) BP elevated today without symptoms of urgency or emergency. Continue serial checks and follow-up with PCP 11/05/2024 Adverse effect of other vaccines and biological substances, initial encounter (ICD-10 - T50.Z95A) Kathy reports that in October 2023 she received a TDAP booster. The next day she developed urticaria on her face and hairline. - Timeline described is not consistent with IgE-mediated hypersensitivity reaction to Tdap vaccine. Can consider a dose challenge if desired by Kathy in the future 11/05/2024 Elevated blood-pressure reading, without diagnosis of hypertension (ICD-10 - R03.0) BP elevated today without symptoms of urgency or emergency. Continue serial checks and follow-up with PCP 10/29/2024 Other 12/19/2023 Other 01/16/2024 Other 02/13/2024 Other 03/12/2024 Other 04/09/2024 Other 05/14/2024 Other 06/03/2024 Other 06/11/2024 Other 06/25/2024 Other 07/09/2024 Other 08/06/2024 Other 09/03/2024 Other 10/01/2024 Other 11/05/2024 Other Plan Of Treatment Next Appt Details Provider Name:Vineet JeronimoJulián Canseco , 12/03/2024 04:00:00 PM, [address] [place], [address], Insurance Providers Payer Name Payer Address Payer Phone Subscriber Number Group Number Insured Name Patient Relationship to Insured Coverage Start Date Coverage End Date [facility] [address] [place] [phone] [id number] Kathy Reynolds Self - patient is the insured Medical (General) History Surgical History Surgery Date(Month/Year) Cholecystectomy 12/15/2012 uerethral sling 03/2024 Hospitalization History Reason Date(Month/Year) Appendectomy 02/06/1990
[2024-11-23 17:13] VITALS: BP 142/98; PULSE 96; RESP 18; TEMP 36.6; O2SAT 100
== END 2024-11-23 17:27 | disposition home or self-care (01) ==
PROVIDERS: Emergency Provider Nurse Practitioner Family; PCP Physician Assistant
DX: J30.2 Other seasonal allergic rhinitis (principal); H66.003 Acute suppurative otitis media without spontaneous rupture of ear drum, bilateral; R05.1 Acute cough; J45.909 Unspecified asthma, uncomplicated; Z86.16 Personal history of COVID-19
CPT/HCPCS: 99203; G0463